=== PATIENT | male | born 1940 | race Caucasian/White ===

== ENCOUNTER 2019-07-11 23:53 | Inpatient (IN) ==
[2019-07-12 01:10] LABS: BASO# 0.01 X1000 (0.0-0.2); BASO% 0.2 % (0.0-0.8); EOS# 0.01 X1000 (0.0-0.7); EOS% 0.2 % (0.0-10.0); HEMATOCRIT 41.4 % (42.0-52.0); HEMOGLOBIN 13.8 g/dL (14.0-18.0); IMM GRAN# 0.34 X1000 (0.0-0.04); IMM GRAN% 5.9 % (0.0-0.5); LYMPH# 0.33 X1000 (1.2-3.4); LYMPH% 5.7 % (20.5-51.1); MCH 29.5 PG (27-31); MCHC 33.3 g/dL (33-37); MCV 88.5 FL (81-99); MONO# 0.68 X1000 (0.11-0.59); MONO% 11.8 % (1.7-9.3); NEUT# 4.41 X1000 (1.4-6.5); NEUT% 76.2 % (42.2-75.2); PLT 117 X1000 (130-400); RBC 4.68 XMIL (4.7-6.1); RDW 15.8 % (11.5-14.5); WBC 5.78 X1000 (4.8-10.8)
--- NOTE | 2019-07-12 01:23 | PROVIDER DOCUMENTATION ---
HPI-General Adult - General Chief Complaint: General Adult Stated Complaint: WEAKNESS Time Seen by Provider: 07/12/19 00:05 Source: patient, family Allergies/Adverse Reactions: Patient Allergies Allergy/AdvReac Type Severity Reaction Status Date / Time No Known Allergies Allergy Verified 07/12/19 00:45 Home Medications: Home Medication List Medication Instructions Recorded Confirmed Last Taken Type Omeprazole [Prilosec] 40 mg PO BID 07/12/15 11/17/18 11/16/18 18:00 History Tamsulosin [Flomax] 0.4 mg PO EVERY OTHER DAY 07/12/15 10/15/18 1 Day Ago Hist ory ~10/15/17 Atorvastatin Calcium [Lipitor] 40 mg PO QHS 10/09/15 11/17/18 11/16/18 18:00 H istory Duloxetine [Cymbalta] 30 mg PO DAILY 10/16/17 11/17/18 11/16/18 18:00 History Clonidine [Catapres] 0.1 mg PO Q4H PRN PRN tablet 10/18/17 11/17/18 11/16/18 18:00 Rx Amlodipine Besylate [Norvasc] 2.5 mg PO DAILY 08/16/18 11/17/18 11/16/18 18:00 History Levetiracetam [Keppra] 1,500 mg PO BID 08/16/18 11/17/18 11/16/18 18:00 History Losartan [Cozaar] 50 mg PO BID 08/16/18 11/17/18 11/16/18 18:00 History Promethazine [Phenergan] 25 mg PO DIRECTED PRN 08/16/18 11/17/18 11/16/18 18:00 History Aspirin 325 mg PO DAILY 10/15/18 11/17/18 11/16/18 18:00 History Tamsulosin [Flomax] 0.4 mg PO DAILY 11/17/18 11/17/18 11/16/18 18:00 History - History of Present Illness -Gen Adult Nature of Presenting Problems: 78 YO M pmh for recent CVA being followed by neurology with residual right sided weakness brought to ED by his for increasing weakness over the past 36 hours with associated falls without LOC or head injury and intermittent abdominal pain with constipation and last BM being 7 days ago. He was given mag citrate by his PCP 2 days ago with no relief of constipation. Associated poor appetite. Pt states he had CVA in March, and was rescanned on Jul 05, 2019 by neurology and stated to have another more recent CVA. 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 hx of CABG 10 years ago. His home BPs have been running 170s/100s. He currently denies any pain or ShOB. Location of Pain/Injury: reports: none Pain Radiation: reports: no radiation Quality of Pain: reports: none Severity: reports: moderate Onset/Duration: reports: 2 days ago Timing: reports: still present Context/Activities at Onset: reports: none Associated Symptoms: reports: constipation, weakness, trouble walking. denies: chest pain, diarrhea, dizziness, fatigue, fever/chills, shortness of breath, syncope, vomiting Recently seen or treated by another doctor?: Yes Review of Systems - Adult - REVIEW OF SYSTEMS - ADULT Constitutional: denies: chills, fever Eyes: reports: no symptoms reported Ears, Nose, Mouth & Throat: reports: no symptoms reported Cardiovascular: denies: chest pain, edema Respiratory: denies: shortness of breath Gastrointestinal: reports: see HPI, abdominal pain, constipation, poor appetite. denies: difficulty swallowing, nausea, vomiting Genitourinary: denies: dysuria, flank pain, frequent UTI's, hematuria Musculoskeletal: reports: no symptoms reported Neurological: reports: see HPI, loss of balance. denies: slurred speech, syncope Psychiatric: reports: no symptoms reported Endocrine: reports: no symptoms reported Hematologic/Lymphatic: reports: no symptoms reported Allergic/Immunologic: reports: no symptoms reported Past History - Adult - PAST MEDICAL HISTORY-ADULT Review of Records: reports: Old Records Reviewed, Nursing Assessment Review, Medications Reviewed Major Childhood Illnesses: reports: denies history Cardiovascular: reports: CAD, HTN, hyperlipidemia Respiratory: reports: denies history Gastrointestinal: reports: other (barretts esophagus) Obstetrical/Gynecological: reports: denies history Genitourinary: reports: cancer (bladder) Musculoskeletal: reports: denies history Neurological: reports: CVA, Seizures/Epilepsy, TIA Endocrine/Immune: reports: denies history Other Conditions: reports: denies history - PRIOR SURGERIES/PROCEDURES Surgical/Procedure History: reports: CABG, hernia repair, other (cataract, bladder) - IMMUNIZATION STATUS Childhood Immunizations: See Nurse Assessment Flu Vaccine: See Nurse Assessment - FAMILY HISTORY Family History: reviewed, not pertinent - SOCIAL HISTORY Smoking: denies Substance Use: denies Living Situation: family Physical Exam-General - PHYSICAL EXAM-ADULT Initial Vital Signs Reviewed: Yes (repeat BP 170s/100s) - CONSTITUTIONAL General Appearance: lethargic, slow to respond - EYES Eyes: pale conjunctivae - HEAD, EARS, NOSE, MOUTH & THROAT HENMT: normocephalic/atraumatic. negative: moist mucous membranes - RESPIRATORY Respiratory: lungs clear, normal breath sounds, no pleuratic chest pain, no respiratory distress, no accessory muscle use - CARDIOVASCULAR Cardiovascular: no edema, systolic murmur, other (pacer in left chest wall anteriorly) - GASTROINTESTINAL (ABDOMEN) Abdominal Exam: normal bowel sounds, non tender, soft. negative: distended - MUSCULOSKELETAL Extremity: no pedal edema, no calf tenderness - SKIN Integumentary: warm/dry - NEUROLOGIC Neurologic: motor weakness. negative: aphasia, facial droop - PSYCHIATRIC Psych/Mental Status: normal mood/affect Progress - PLAN OF CARE/RESULTS Progress/Plan/Lab Results: Vital Signs - 8 hr 07/12/19 00:17 Temperature 97.7 F Pulse Rate 80 Respiratory Rate 18 Blood Pressure 204/122 O2 Sat by Pulse Oximetry 95 Laboratory Results - last 24 hr 07/12/19 00:57 WBC 5.78 RBC 4.68 L Hgb 13.8 L Hct 41.4 L MCV 88.5 MCH 29.5 MCHC 33.3 RDW Std Deviation 15.8 H Plt Count 117 L MPV 11.0 H Immature Gran % (Auto) 5.9 H Neut % (Auto) 76.2 H Lymph % (Auto) 5.7 L [place] % (Auto) 11.8 H Eos % (Auto) 0.2 Baso % (Auto) 0.2 Immature Gran # (Auto) 0.34 H Neut # (Auto) 4.41 Lymph # (Auto) 0.33 L [place] # (Auto) 0.68 H Eos # (Auto) 0.01 Baso # (Auto) 0.01 Orders Category Date Time Status Nursing- Obtain EKG ONCE Care 07/12/19 00:42 Active CHEST-1 VIEW [RAD] Stat Exams 07/12/19 00:[address] ABDOMEN/PELVIS W/O CONTRAST [CT] Stat Exams 07/12/19 00:43 Ordered CBC WITH ELECTRONIC DIFF [HEME] Stat Lab 07/12/19 00:57 Completed COMPREHENSIVE METABOLIC PANEL [CHEM] Stat Lab 07/12/19 00:57 Received LIPASE [CHEM] Stat Lab 07/12/19 00:57 Received PRO B-NATRIURETIC PEPTIDE Stat Lab 07/12/19 00:57 Received TROPONIN T Stat Lab 07/12/19 00:57 Received TSH Stat Lab 07/12/19 00:57 Received URINALYSIS W/POSS RFLX CULT [URINALYSIS] Stat Lab 07/12/19 00:43 Uncollected 78 YO M pmh for CVA with residual weakness, increasing weakness and de compensation with 2 falls in the past [address] showing constipation (having no BM in 7 days) and elevated proBNP and hyperglycemia. Will admit for decompensation and generalized weakness. Result Diagrams: 07/12/19 00:57 07/12/19 00:57 - REASSESSMENT Reassessment #1 Time Reassessed: 02:36 Status: unchanged (pt with labs showing hyperglycemia. Elevated pro BNP. CT showing constipation and no obstruction. Hiatal hernia, renal cysts, prostate enlargement, and chronic aspiration. Will try for dulcolax suppository.) - EKG 1 Time of EKG reading by physician:: 01:40 EKG Read and Signed by:: Devin Lee EKG Interpretation (*Must complete 3 of following elements*): Abnormal Rate: 73 Rhythm: NSR [place]: left QRS: normal [place] Interval: normal Prior EKG Comparison: unchanged from prior (unchanged from 11/17/2018.) - CONSULTS/PCP/HOSPITALIST Notification #1 *Consult/PCP/Hospitalist*: Dr. Valiente Time Discussed: 03:08 (accepts admission) Consult Disposition: Will see in ED Departure - Departure Date of Disposition Decision: 07/12/19 Time of Disposition Decision: 02:48 DIAGNOSIS: Hyperglycemia, Weakness, Recurrent falls, Constipation, Abdominal pain, Elevated brain natriuretic peptide (BNP) level, Hypertension Disposition: ADMITTED INPATIENT 09 Certified Medical Emergency: Emergent Condition: Stable Referrals and Follow-Ups: Ludwig Daley MD [Primary Care Provider] - - Critical Care Note This patient required my direct & personal management of CC.: No Attestation - Physician/ ALAINA Attestation The physician spent face to face time with patient:: Yes Advanced Practice Provider documentation review:: Supervising physician onsite and consulted in the evaluation and care of this patient. The physician did have a face to face encounter with the patient.
[2019-07-12 01:40] LABS: URINE SOURCE CLEAN CATCH
[2019-07-12 01:55] LABS: AGAP 11; ALB/GLOB RATIO 1.7; ALBUMIN 3.2 g/dL (3.5-5.0); ALKALINE PHOSPHATASE 48 U/L (32-122); BUN 32 mg/dL (8-22); CALCIUM 9.8 mg/dL (8.8-10.2); CHLORIDE 98 mmol/L (98-107); COSMO 297; CREATININE 0.9 mg/dL (0.7-1.2); ESTIMATED GFR > 60; GLUCOSE 317 mg/dL (70-104); GOT 20 U/L (10-34); GPT 29 U/L (10-44); LIPASE 34 U/L (13-60); POTASSIUM 4.4 mmol/L (3.5-5.1); SODIUM 139 mmol/L (136-145); TCO2 30 mmol/L (25-35); TOTAL BILIRUBIN 0.68 mg/dL (0.20-1.00); TOTAL PROTEIN 5.1 g/dL (6.3-8.3)
[2019-07-12 02:20] LABS: BILIRUBIN URINE NEGATIVE (NEGATIVE); BLOOD URINE NEGATIVE (NEGATIVE); COLOR YELLOW; GLUCOSE URINE >1000 mg/dL (NEGATIVE); KETONE URINE NEGATIVE (NEGATIVE); LEUKOCYTES URINE MODERATE (NEGATIVE); NITRITE URINE NEGATIVE (NEGATIVE); PH URINE 6.5; PROTEIN URINE 70 mg/dL (NEGATIVE); SP GRAVITY URINE 1.022; TURBIDITY URINE HAZY (CLEAR); UR EPITHELIAL CELLS <10 /HPF (<10); URINE BACTERIA 3+ /HPF; URINE RBC <10 /HPF (<10); URINE WBC TNTC /HPF (<10); UROBILINOGEN URINE 2 mg/dL (NORMAL)
[2019-07-12] MEDS ORDERED: DULCOLAX PR ONE (02:46)
[2019-07-12] MEDS ORDERED: ASPIRIN PO ONE ×2 (03:27→09:00)
[2019-07-12] MEDS ORDERED: NORVASC PO ONE (03:28)
[2019-07-12] MEDS ORDERED: PERICOLACE PO ONE (03:29)
[2019-07-12] MEDS ORDERED: LACTULOSE PO ONE (03:29)
[2019-07-12] MEDS ORDERED: ROCEPHIN 1 GM in NS 50 ML IV ONE (03:30)
--- NOTE | 2019-07-12 04:43 | HISTORY AND PHYSICAL ---
PRIMARY CARE PHYSICIAN: Dr. Ludwig Daley. ADDENDUM: The patient is a 78-year-old man with history of cerebral vascular vasculitis, type of vasculitis, i.e. large, medium, small vessel vasculitis is yet to be determined, per the family. He has been on Rituxan and prednisone for several months. Just last week, his prednisone dose was doubled from 30 mg to 60 mg. After being unable to tolerate the initial 60 mg dose several months ago. Ever since the dose of the prednisone has been doubled, the patient has noted that his weakness has gotten severely worse. He denies any cardiorespiratory complaints, but has a hard time standing from a sitting position, and using his upper body strength. He denies any focal sensorimotor, neurological complaints. His family denies any speech problems, facial asymmetry. PHYSICAL EXAMINATION: VITAL SIGNS: His blood pressure was noticeably elevated at 194/125, heart rate is 80, respiratory rate is 18, temperature is 97.7 degrees, and he is 95% on room air. HEENT: The patient's oropharynx has moderate xerostomia. NEUROLOGIC: His cranial nerve exam is intact. His power is 4/5 in all extremities. CARDIOVASCULAR: He has a 2-3/6 systolic ejection murmur in the left lateral border, rhythm is regular. GASTROINTESTINAL: Abdomen is slightly protuberant with increased bowel sounds. No tenderness. LABORATORY WORK: Notable for thrombocytopenia of 117, hemoglobin and hematocrit 13 and 41, platelets 5000 with a slight left shift. His blood sugar was 317. BUN 32, creatinine 0.9. Urinalysis shows 3+ bacteria, too numerous to count WBCs, and a glucose of greater than 1000. My suspicion is the patient may have a subcortical subclinical stroke and will benefit from a stroke workup, MRI of the brain stroke protocol and MRA of the head to evaluate for intracranial vascular disease, and an MRA of the neck to assess for carotid stenosis, echocardiogram will also be ordered. The patient probably does have a legitimate urinary tract infection, and will start him on Rocephin. We will also start him on baby aspirin. DVT prophylaxis is started. He will need to initiate a bowel movement because he has been chronically constipated, presumably from the high-dose steroids. Patient also has evidence of BPH, and this lends further credence to my suspicion of diagnosis of a UTI. Statin therapy also needs to be addressed, and medication reconciliation needs to be addressed and modified accordingly. cc: Rena Valiente MD
[2019-07-12 05:46] LABS: INR 1.14; PROTIME 14.8 Seconds (11.0-16.0)
[2019-07-12 05:47] LABS: PTT 29.5 Seconds (22.3-41.8)
[2019-07-12 06:28] LABS: HEMOGLOBIN A1C 7.9 % (4.8-6.0)
[2019-07-12] MEDS ORDERED: ATIVAN IV ONE ×2 (06:51→07:12)
--- NOTE | 2019-07-12 07:02 | Diag Imaging Result Doc PS360 ---
EXAM: CHEST-1 VIEW 07/12/2019 HISTORY: weakness TECHNIQUE: AP portable at 0122 COMMENT: There is platelike atelectasis in the left base which was not present on 10/15/2018. The inspiration is much less optimal. IMPRESSION: Poor inspiration. Left lower lobe atelectasis. Electronically signed by Jose Miguel Majano 07/12/2019 7:00 AM
[2019-07-12] MEDS ORDERED: ZOFRAN IV PRN (07:29)
--- NOTE | 2019-07-12 07:53 | Diag Imaging Result Doc PS360 ---
EXAM: CT HEAD W/O CONTRAST 07/12/2019 HISTORY: weakness,Hx CVA Cerebral Vascular Vasculitis TECHNIQUE: This exam was performed using automated exposure control, adjustment of mA or kV according to patient size, and/or use of iterative reconstruction technique. COMMENT: There are calcifications in the left vertebral and both internal carotid arteries. There are some patchy lucencies in the centrum semiovale ovale region and there is some cortical encephalomalacia in the right parietal convexity. There is a lacune present in the anterior superior basal ganglia region on the left. No evidence of bleed, mass effect, or abnormal extra-axial fluid collection is present. Compared to the previous examination of 11/17/2018, the lacunar infarction on the left was not as well-defined. Otherwise are has been no significant change. There is some mucosal thickening in the right maxillary sinus. The calvarium is intact. IMPRESSION: Progression of chronic ischemic changes with regard to the left basal ganglia lacune since the previous study. In view of the chronic changes, further evaluation with MRI may be desirable. Electronically signed by Jose Miguel Majano 07/12/2019 7:51 AM
--- NOTE | 2019-07-12 08:55 | EKG Report ---
Test Performed on : 07/12/2019 01:35:31 AM Test Reason : ED. NO EKG ORDER FOR MUSE Blood Pressure : / mmHG Vent. Rate : 073 BPM Atrial Rate : 073 BPM P-R Int : 168 ms QRS Dur : 122 ms QT Int : 408 ms P-R-T Axes : 047 -31 150 degrees QTc Int : 449 ms Normal sinus rhythm. Left axis deviation Cannot rule out Anterior infarct , age undetermined ST & T wave abnormality, consider inferolateral ischemia Abnormal ECG When compared with ECG of 17-NOV-2018 04:29, ST now depressed in Lateral leads T wave inversion more evident in Lateral leads Unconfirmed Result
--- NOTE | 2019-07-12 08:57 | Diag Imaging Result Doc PS360 ---
EXAM: CT ANGIOGRAM HEAD/NECK INDICATION: weakness,Hx CVA Cerebral Vascular Vasculitis TECHNIQUE: This exam was performed using automated exposure control, adjustment of mA or kV according to patient size, and/or use of iterative reconstruction technique. Thin section axial images and 3-D MIPS were obtained. COMPARISON: MRA brain dated 07/24/2015. No prior CTA head is available for comparison. FINDINGS: HEAD: The contrast bolus is somewhat limited. There is extensive atherosclerotic calcification involving the carotid siphons bilaterally with mild to moderate luminal narrowing. There is poor opacification of the distal loan workout officer bilaterally. This appears to be technical due to a limited contrast bolus. There is no evidence of flow-limiting stenosis, vascular malformation, or cerebral aneurysm involving the arteries comprising the [place], otherwise, including the anterior, middle, and posterior cerebral arteries. The basilar artery is unremarkable. The left vertebral artery is dominant. There is mild atherosclerotic calcification in the distal vertebral artery on the left. There is no evidence of flow-limiting stenosis here. NECK: The contrast bolus is somewhat limited. There is mild atherosclerotic calcification involving the left CCA and trace atherosclerotic calcification involving the right CCA. There is moderate atherosclerotic calcification involving the carotid bulbs bilaterally. There is approximately 30-40% luminal narrowing at the distal carotid bulbs bilaterally. The remainder of the cervical ICAs are widely patent. The left vertebral artery is dominant. The right vertebral artery is much smaller, a common variant. There is mild atherosclerotic calcification involving the cervical segments of the left vertebral artery with no evidence of flow-limiting stenosis. IMPRESSION: 1.Somewhat limited by poor contrast bolus. 2.Atherosclerotic calcification involving the carotid siphons bilaterally with mild to moderate luminal narrowing. 3.Atherosclerotic calcification at the carotid bulbs bilaterally with about 30-40% luminal narrowing. Electronically signed by Popeye Jean Baptiste 07/12/2019 8:54 AM
[2019-07-12] MEDS ORDERED: PREDNISONE PO SCH (09:00)
--- NOTE | 2019-07-12 09:11 | Diag Imaging Result Doc PS360 ---
EXAM: CT ABDOMEN/PELVIS W/O CONTRAST INDICATION: abdominal pain/obstruction TECHNIQUE: This exam was performed using automated exposure control, adjustment of mA or kV according to patient size, and/or use of iterative reconstruction technique. COMPARISON: None. FINDINGS: There is mild subsegmental atelectasis at the lung bases. There has been a prior cholecystectomy. There is questionable minimal hepatic steatosis. The spleen, pancreas, and adrenal glands are essentially unremarkable. There are several low dense cortical renal lesions that very likely represent cysts. Some likely containing blood products or proteinaceous debris indicating mild complexity. Further evaluation is limited with no IV contrast. There is no hydronephrosis. The kidneys are essentially unremarkable, otherwise. The prostate is mildly enlarged. The urinary bladder is partially distended. It is essentially unremarkable, otherwise. There is mild uncomplicated diverticulosis coli. There is a large amount of stool in the transverse colon and there is impacted stool in the rectum. There is no evidence of bowel obstruction. There is a small hiatal hernia. The remainder of the GI tract is grossly unremarkable as imaged. No focal inflammatory changes, free abdominal gas, or free fluid is identified. There is advanced spondylosis throughout the spine. There is no evidence of acute osseous abnormality. IMPRESSION: 1.Constipation with a rectal fecal impaction as described. 2.Other incidental/nonacute findings detailed above. Electronically signed by Popeye Jean Baptiste 07/12/2019 9:09 AM
[2019-07-12] MEDS ORDERED: ATIVAN IV PRN (09:37)
[2019-07-12] MEDS: HUMULIN R SUBQ SCH ×4 (10:32→21:07)
[2019-07-12] MEDS: CYMBALTA PO SCH ×2 (10:36→21:01)
[2019-07-12 14:05] LABS: URINE SOURCE CATH
[2019-07-12 14:07] LABS: BILIRUBIN URINE NEGATIVE (NEGATIVE); BLOOD URINE TRACE (NEGATIVE); COLOR YELLOW; GLUCOSE URINE 500 mg/dL (NEGATIVE); KETONE URINE NEGATIVE (NEGATIVE); LEUKOCYTES URINE LARGE (NEGATIVE); NITRITE URINE NEGATIVE (NEGATIVE); PH URINE 6.5; PROTEIN URINE 70 mg/dL (NEGATIVE); SP GRAVITY URINE 1.035; TURBIDITY URINE HAZY (CLEAR); UROBILINOGEN URINE 2 mg/dL (NORMAL)
[2019-07-12 14:08] LABS: UR EPITHELIAL CELLS <10 /HPF (<10); URINE BACTERIA 2+ /HPF; URINE RBC <10 /HPF (<10); URINE WBC TNTC /HPF (<10)
[2019-07-12] MEDS: PRILOSEC PO SCH ×2 (18:15→19:39)
[2019-07-12] MEDS: CELLCEPT PO SCH ×2 (18:18→21:01)
[2019-07-12] MEDS: PREDNISONE PO SCH ×2 (18:18→21:05)
[2019-07-12] MEDS: MIRALAX PO SCH ×2 (18:19→21:01)
[2019-07-12] MEDS: FLOMAX PO SCH (18:19)
[2019-07-12] MEDS: LANOXIN PO SCH (18:19)
[2019-07-12] MEDS: SENOKOT PO SCH ×2 (18:20→21:05)
[2019-07-12] MEDS ORDERED: ZYPREXA PO SCH (21:00)
[2019-07-12] MEDS: DESYREL PO SCH (21:01)
[2019-07-12] MEDS: LIPITOR PO SCH (21:01)
[2019-07-12] MEDS: ZYPREXA PO SCH (21:05)
[2019-07-12] MEDS ORDERED: NS 1,000 ML IV SCH (21:15)
--- NOTE | 2019-07-12 21:17 | CONSULTATION ---
DATE OF CONSULTATION: 07/12/2019 REASON FOR CONSULTATION: Weakness, possible stroke, history of HOT STRIP MILL INSPECTOR vasculitis. HISTORY: This is a 78-year-old male patient who was being treated for cerebral vasculitis by Dr. Yates at [facility]. He is on rituximab, prednisone, and mycophenolate was recently added. History is from the attendant family. About 2 years ago, the patient began to have off-and-on symptoms for which he was being evaluated. He would have periods of a rather sudden onset of speech difficulty, possible language difficulty, and/or sudden onset of inability to see inferiorly. These events would last approximately 10 minutes before complete resolution. It was ultimately thought he was having TIAs. He did have an extensive cardiac workup as well. He had a pacemaker implanted, and a Watchman device as well. He does have atrial fibrillation. I believe in January of this year, he was seen at the [facility] to see if these events were potentially seizures. He had EEG monitoring for some time, which did not show evidence of seizures. Family reports that he had a relatively good day during the time that he was on monitoring and did not definitely have any of his events. In January the patient was ultimately seen and admitted at [facility]. It sounds as though he had a lumbar puncture and cerebral angiogram, and a diagnosis of HOT STRIP MILL INSPECTOR vasculitis was made. He was started on Rituxan in the hospital as well as prednisone. He did not tolerate the prednisone initially. Family reports his symptoms improved for about 1 week, but he subsequently became ill and septic, and has since had a continuous downward trend. In March, he had sudden onset of inability to speak as well as right- sided weakness and facial droop. He was diagnosed with a stroke. In the last couple of weeks, he has had more prominent decline. He had followup at [facility] July 05 with repeat imaging. Decision was made to increase prednisone from 30 to 60mg. Subsequently his head CT showed concern for a possible stroke, though I am not certain that was definitive. His mobility and general function has continued to decline. He has had generalized weakness. Family decided to bring him to the emergency room due to constipation and general weakness. He is being treated for UTI and prednisone was reduced back to 30mg. PAST MEDICAL HISTORY: Being treated for HOT STRIP MILL INSPECTOR vasculitis. He follows with Dr. Yates at [facility]. Hypertension, coronary artery disease, atrial fibrillation status post ablation in 2017, Watchman device. FAMILY HISTORY: Positive for hypertension. SOCIAL HISTORY: He is . Lives in the area. He does not smoke. ALLERGIES: No known drug allergies. MEDICATIONS: Current, reviewed in the chart. He is currently on prednisone 30 mg daily, aspirin 325 mg daily, Lipitor 40 mg daily. He received a dose of lorazepam this morning. He also takes CellCept and Rituxan. REVIEW OF SYSTEMS: Difficult to obtain due to patient factors. PHYSICAL EXAMINATION: Vital Signs: T max 100. Blood pressure 180s to 190s systolic over 90s to one-teens diastolic, pulse 90s, respirations 18, 96% on room air. General: Mr. Arizmendi is supine in bed with eyes closed. He lifts eyebrows, mumbles, and essentially opens his eyes to voice. He appears groggy and drifts back to sleep but easily wakes. He does not answer orientation questions. He mumbles incoherently. He follows some commands but not others. He shows thumbs-up on both hands. Pupils are equal, round, and reactive. Gaze is conjugate. There is horizontal eye movement with passive head turning. There is purposeful and spontaneous horizontal eye movement as well. Blinks to threat. He is not attentive enough for visual field testing. There is subtle facial asymmetry with some flattening of the right nasolabial fold. No meningismus. Virtual Assistant are good bilaterally and symmetric. Biceps intact and symmetric. He did not otherwise participate well with strength testing, though I did see him raise both lower extremities. He responds to stimulus in all extremities. A little bit reduced in the right lower extremity compared to the others. Absent ankle jerks ,1+ biceps bilaterally. No clonus. Plantar response is downgoing. I could not test gait or coordination. DIAGNOSTICS: CT noncontrast was compared to a study from November of this year. Progression of chronic ischemic changes with regard to left basal ganglia lacune since the previous study. Head and neck CT is somewhat limited by poor contrast bolus. There is atherosclerotic calcification within the carotid siphons bilaterally with [id number] luminal narrowing, atherosclerotic calcification at the carotid bulbs bilaterally with about 30% to 40% luminal narrowing. Normal white count. BUN 32, creatinine 0.9, normal sodium. A1c of 7.9. AST/ALT normal. CRP is 64. Urinalysis suspicious for UTI with culture pending. ASSESSMENT AND PLAN: Elderly 78 year old gentleman with 1. Recurrent language and or inferior visual field deficits with initial concern for TIAs, seizures, or other. 2. Continued gradual neurocognitive and functional decline with increased severity of decline over the last week or so. Potential etiologies for more recent decline include UTI, recent medication changes, progression of vasculitis. May need to consider other infectious processes including HOT STRIP MILL INSPECTOR, especially since he is on immunosuppressive medications, if mental status does not improve. I also wonder what medications, if any, can be weaned to off or discontinued. Agree with treating UTI and reducing prednisone. If he does not improve, we may consider EEG, repeat imaging. further infectious workup. 3. He is being treated for cerebral vasculitis at [facility] and is on rituximab, mycophenolate and prednisone. No current findings on CTA. No history of systemic vasculitis. We do not have records available. 4. Immunosuppression. 5. History of adverse effects with prednisone 6. UTI, on abx for treatment 7. Multiple stroke risk factors Thank you for the consultation. cc: MD Ludwig Peraza MD MTDD
--- NOTE | 2019-07-12 22:14 | HISTORY AND PHYSICAL ---
PRIMARY CARE PHYSICIAN: Dr. Ludwig Daley. CHIEF COMPLAINT: Profound weakness, alteration of mental status. HISTORY OF PRESENT ILLNESS: This is a 78-year-old white male with a very complicated past medical history who presents for evaluation of above-mentioned symptoms. Pertinent history of present illness began over the course of the last 2 to 3 years. Over that time period, multiple neurologic and cardiovascular evaluations have been pursued secondary to intermittent episodes of alteration of mental status. Atrial fibrillation has been addressed. The diagnoses of possible transient ischemic attacks and possible seizure activities were made, but ultimately challenged. 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 Patient has subsequently been treated with prednisone and rituximab, and recently had mycophenolate added. Unfortunately, the patient's overall clinical condition continues to be compromised. He continues to have episodes of mental status alteration as well as profound weakness. Approximately 1 week ago he was seen at [facility]. Prednisone therapy was doubled from 30 mg to 60 mg. Since that time, the patient has developed progressive weakness. He is unable to ambulate without assistance. Overnight, patient's condition progressed. He continues to have profound weakness as well as mental status changes. Concern was raised in regards to obstipation. The patient was brought to the emergency department. Full evaluation was pursued. Laboratory data returned positive for a urinary tract infection. CT scan of the head revealed progression of chronic ischemic changes with regard to the left basal ganglia lacune since the previous study of . CT scan of the abdomen and pelvis suggested constipation with a rectal fecal impaction. The patient was started on Rocephin therapy for his urinary tract infection. Early this morning,the patient became agitated and belligerent. The patient required Ativan to maintain adequate control. Upon my arrival this morning, the patient was somnolent. A long discussion was held with patient's family. Because of urinary infrequency, a bladder scan was performed revealing 900 mL in his bladder. A catheter has subsequently has been placed. The patient will be admitted to the hospital for full evaluation and management of alteration of mental status, urinary tract infection, and ACCOUNTING OFFICER vasculitis. Of note, patient's family denies any evidence of fevers, chills, nausea, vomiting, dysuria, hematuria, or pyuria recently. PAST MEDICAL HISTORY: 1. Abnormal electrocardiogram with nonspecific QRS widening, T-wave inversion in the lateral leads, and atrial fibrillation. 2. Abnormal skin examination with multiple actinic keratoses, seborrheic keratoses and a history of multiple basal cell carcinomas. 3. Sanchez esophagus. 4. Benign prostatic hypertrophy. 5. Constipation. 6. Diastolic dysfunction. 7. Metabolic syndrome. 8. Reflux disease. 9. Hypertension. 10. Family history of stroke. 11. 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 12. Chronic hoarseness. 13. Hyperlipidemia. 14. Impaired fasting glucose. 15. Iron deficiency anemia. 16. Ischemic heart disease status post coronary artery bypass grafting in 2011. 17. Migraine headaches. 18. Mitral regurgitation. 19. Memory impairment. 20. Paroxysmal atrial fibrillation status post ablation in 2017 and subsequent Watchman intervention. 21. Pacemaker implantation in 2017. 22. Possible history of transient ischemic attacks. 23. Umbilical hernia. 24. 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 25. ACCOUNTING OFFICER vasculitis. CURRENT MEDICATIONS: 1. Aspirin 325 mg daily. 2. Amlodipine 2.5 mg daily. 3. Digoxin 125 mcg daily. 4. Prednisone 30 mg in morning and 30 mg in the evening. 5. Duloxetine 30 mg twice daily. 6. Mycophenolate 500 mg twice daily. 7. Omeprazole 40 mg twice daily. 8. Tamsulosin 0.4 mg daily. 9. Lipitor 40 mg at bedtime. 10. Trazodone 50 mg at bedtime. 11. Olanzapine 15 mg at bedtime. ALLERGIES: The patient is known to be allergic to Actos, Crestor, niacin and Zocor. SOCIAL HISTORY: Patient denies tobacco, alcohol or illicit drug use. 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 He enjoys golf. He exercises intermittently. FAMILY HISTORY: Patient's father passed at age 61 secondary to complications of a cerebral hemorrhage. Patient's mother passed at age 84 secondary to "old age." She had a history of hypertension. REVIEW OF SYSTEMS: A 12-point review of systems was performed. Pertinent positives and negatives are noted in the history of present illness. PHYSICAL EXAMINATION: VITAL SIGNS: Temperature 98.9 degrees, heart rate 91, respirations 17 blood pressure is 160/95. GENERAL: Chronically ill-appearing, in no acute distress. HEENT: Normocephalic, atraumatic. Pupils equal, round, react to light. Extraocular muscles intact. Sclerae anicteric. [place] conjunctivae. Oral and nasopharynx clear without exudate. NECK: Supple. No lymphadenopathy. No thyromegaly. No bruits auscultated. CARDIOVASCULAR: Regular rate and rhythm. No significant murmurs, rubs, or gallops. PULMONARY: Clear to auscultation bilaterally. ABDOMEN: Soft, nontender, nondistended. Positive bowel sounds. EXTREMITIES: Moves all extremities well. No significant clubbing, cyanosis, or edema. NEUROLOGIC: Cranial nerves 2-12 grossly intact. Motor and sensory grossly intact. PSYCHOLOGIC EXAMINATION: Appropriate. LABORATORY DATA: White blood cell count 5.78, hemoglobin 13.8, hematocrit 41.4, platelet count 117,000. Sedimentation rate 15. PT 14.8, INR 1.14, PTT 29.5. Sodium 139, potassium 4.4, chloride 98, bicarb 30, BUN 32, creatinine 0.9 glucose 317. Calcium at 9.8, total bilirubin 0.68, total protein 5.1, albumin 3.2, alkaline phosphatase 48, AST 20, ALT 29. TSH 0.35. Hemoglobin A1c 7.9. Total cholesterol 131, LDL 69, HDL 35, triglycerides 327, CRP 64.98. ASSESSMENT AND PLAN: 1. A 78-year-old, white male with a very complicated past medical history presents for evaluation of alteration of mental status. Laboratory data is significant for a urinary tract infection. I am, however, very concerned this also represents progression of his cerebral vascular disease. Patient will be admitted to the hospital for full evaluation and management as below. 2. Alteration of mental status-as above. Differential diagnosis is quite broad. The patient certainly has an acute illness in the form of a urinary tract infection. This will be treated as below. 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 We will address each of these. We will encourage activity as tolerated. Should patient not develop progressive symptoms, we will consider further alternatives and management. 3. Urinary tract infection. Patient was started on Rocephin upon admission. We will continue this. We will follow blood and urine cultures. 4. Urinary retention. The patient was found to have significant urinary retention this morning. A Quigley catheter was placed. We will consult urology for further management. 5. Central nervous system vasculitis. This is quite concerning. The patient is on multiple medications including rituximab, mycophenolate, and prednisone. The patient's weakness increased after increasing the prednisone. We will decrease prednisone back to 30 mg total daily. We will continue mycophenolate and rituximab per [facility]'s recommendations. As the patient's overall condition continues to progress, I discussed in detail with family his current prognosis. If patient does not show improvement over the course of the next several weeks to months, we will consider whether a more palliative approach is most appropriate. 6. Profound weakness. This is likely secondary to a combination of medication associated and his underlying conditions. We will decrease prednisone as noted. We will initiate physical therapy. 7. Constipation. The patient was treated while in the emergency department. The patient has achieved improvement over the course of the first 12 hours of hospitalization. 8. Diabetes. Blood sugars have increased since being on steroids. We will cover patient with sliding-scale insulin for now. 9. Hypertension. Patient has a longstanding history of labile hypertension. Blood pressure today has remained elevated. He is unable to tolerate p.o. secondary to his somnolent state. Historically, the patient has developed profound hypotension with small doses of antihypertensive intervention. As his blood pressure is not alarming at the present time, we will follow for now. We will plan to resume his oral medications once able. 10. Hyperlipidemia/hypertriglyceridemia/atrial fibrillation. We will continue patient on his home regimen. 11. Fluid/electrolytes/nutrition. We will monitor electrolytes. Normal saline, KVO. Diabetic diet. 12. Prophylaxis. Patient will be placed on subcutaneous Lovenox. cc: Ludwig Daley MD
[2019-07-13] MEDS ORDERED: CARDIZEM IV ONE (02:16)
[2019-07-13] MEDS ORDERED: LANOXIN IV ONE (02:17)
[2019-07-13] MEDS: ROCEPHIN 1 GM in NS 50 ML IV SCH (03:24)
--- NOTE | 2019-07-13 04:18 | HISTORY AND PHYSICAL ---
PRIMARY CARE PROVIDER: Dr. Ludwig Daley. DATE AND TIME: 07/12/2019 at 0600. CHIEF COMPLAINT: Complaining of worsening weakness, some worsening in confusion, as well as his reports that he has been having to get around in a wheelchair, that when he does walk he robinson over and has a shuffling gait. He also has some ataxia noted as well. HISTORY OF PRESENT ILLNESS: The patient does have a history of a previous stroke. He also has cerebral vascular vasculitis and is taking CellCept, Rituxan, and prednisone. They have just recently doubled his prednisone dose from 30 mg daily to 60 mg daily in the last week. They state that since this time, the patient's weakness has progressively gotten worse. Upon my examination, the patient's confusion does seem to be transient at times. He is alert and oriented to person, place, and time. He can identify his at bedside. Then, other times he is only alert and oriented to person. He does have periods where he becomes acutely confused and agitated. Like I said, this is transient, I witnessed this in the ER to where at one point, he was fairly oriented and then a few minutes later was confused and was agitated. The patient really does not report any complaints. He does not report headache or dizziness. His reported that he has stated that his vision has been blurry. He denies any chest pain or shortness of breath. Though, his states that a night or 2 ago that he was lying in bed and looked like he was tachypneic and short of breath. She also states that he appears to be having shortness of breath with exertion as well. He has reported some lower abdominal pain, though has not had a bowel movement in 1 week. There is no reported nausea or vomiting. Though the patient has not reported dysuria, his states he has been having urinary frequency and his urine is dark in color. There is no reported new swelling or pain in extremities. Though, given the patient's symptoms and his history, there is concern that he may have had a possible stroke. Unfortunately, an MRI would be preferred, though the patient does have a pacemaker and is unable to have this test performed. We will order a CT of the head without contrast as well as a CTA of the head and neck. The patient does have a urinary tract infection, We will place him on antibiotic with Rocephin. A urine culture is pending. He will be placed on the medical floor with telemetry for inpatient admission. REVIEW OF SYSTEMS: A 14-point review of systems was conducted with the patient and all were negative, except for pertinent positives mentioned above in HPI. PAST MEDICAL HISTORY: 1. History of TIAs and CVAs with most recent one being in March 2019. 2. History of cerebral vascular vasculitis followed by physician at [facility]. 3. Hypertension. 4. Gastroesophageal reflux disease. 5. History of coronary artery disease status post 2 stents and coronary artery bypass graft. 6. History of paroxysmal atrial fibrillation, status post having a Watchman left atrial closure device placed. 7. Pacemaker placement. PAST SURGICAL HISTORY: 1. Status post coronary artery bypass graft. 2. Pacemaker placement. 3. Watchman left atrial closure device placement. 4. Tumor removal secondary to bladder cancer. SOCIAL HISTORY: The patient does live at home with his , she does care for him. He does require assistance with a wheelchair. His states that he does not ambulate much at this time due to his worsened weakness. There is no known history of tobacco, alcohol, or illicit drug use. FAMILY HISTORY: Positive for hypertension. ALLERGIES: Patient has no known allergies. HOME MEDICATIONS: 1. Norvasc 2.5 mg p.o. daily. 2. Aspirin 325 mg p.o. daily. 3. Lipitor 40 mg p.o. at bedtime. 4. Digoxin 125 mcg p.o. daily. 5. Cymbalta 30 mg p.o. b.i.d. 6. CellCept 500 mg p.o. b.i.d. 7. Olanzapine 15 mg p.o. at bedtime. 8. Prilosec 40 mg p.o. b.i.d. 9. Prednisone 30 mg p.o. b.i.d. 10. Flomax 0.2 mg p.o. daily. 11. Trazodone 50 mg p.o. at bedtime. DIAGNOSTIC DATA/LABORATORY RESULTS: 1. White blood cell count is 5780, hemoglobin 13.8, hematocrit 41.4, platelet count is 117,000. PT 14.8, INR 1.14, PTT is 29.5. Sodium 139, potassium 4.4, chloride 98, serum bicarb is 30, BUN 32, creatinine 0.9 with a GFR greater than 60. Glucose is 317. Hemoglobin A1c is 7.9. Calcium 9.8, magnesium 2.2. Liver function tests within normal limits. Troponin is less than 0.01. Urinalysis was obtained via clean catch, was positive for protein, greater than a 1000 glucose, moderate leukocytes, and too numerous to count white blood cells, and 2+ bacteria. Digoxin level was 0.9. 2. EKG showed normal sinus rhythm, a left axis deviation at a rate of 73 with a QTc of 449. 3. Chest x-ray showed poor inspiration and left lower lobe atelectasis, per Radiology. 4. CT of the abdomen and pelvis without contrast showed constipation with a rectal fecal impaction as described. There was noted to be a large amount of stool in the transverse colon and there is impacted stool in the rectum. There is no evidence of bowel obstruction. Pending diagnostic studies at this time are a CT head and CTA of head and neck. PHYSICAL EXAMINATION: VITAL SIGNS: Temperature 99.1 degrees, heart rate 95, respirations 18, blood pressure is 186/93, oxygen saturation is 94% on room air. GENERAL: Mr. Arizmendi is a 78-year-old male who is resting in the ER stretcher. He is awake and alert, at times he is alert oriented to person, place, and time, and can identify his at bedside, though he does have periods of transient confusion where he does become slightly agitated as well. HEENT: Head is atraumatic, normocephalic. Pupils are 3 mm bilaterally and brisk. Oral mucosa is moist. Oropharynx clear. NECK: Supple. Trachea midline. CARDIOVASCULAR: The patient has S1, S2 present. He has a systolic murmur noted. He has a regular rate and rhythm. PULMONARY: Patient has equal chest rise and fall. The patient has symmetrical chest expansion bilaterally. Lung sounds are clear to auscultation in bilateral full ayala. ABDOMEN: Soft, does not appear to be distended. The patient was not tender upon palpation, though as previously mentioned, he has been reporting some lower abdominal pain. Bowel sounds are present in all 4 quadrants, though were slightly hyperactive. EXTREMITIES: No cyanosis or edema noted. Pulse, motor, and sensory were intact in all extremities. NEUROLOGICAL: Patient is alert and oriented to person, place, and time, though does have periods of transient confusion where he can become slightly agitated as well. He is able to move all extremities, though he does have some generalized weakness noted. He does have some slight ataxia noted as well. His had reported that he has stated to her that he has had some blurry vision. ASSESSMENT AND PLAN: 1. Possible cerebrovascular accident. For further evaluation of this we have ordered a CT of the head without contrast as well as a CTA of the head and neck. We are awaiting those results. We will continue with continuous cardiac telemetry, frequent vital signs. We have ordered a lipid profile as well. We will continue with his regularly prescribed 325 mg aspirin, his Lipitor, and will try to bring down his blood pressure some, though given the possibility of a cerebrovascular accident, we will allow for some permissive hypertension as well. We have placed a consult with Dr. Corona with Neurology. 2. History of cerebral vascular vasculitis. We will continue his regularly prescribed medications for this of CellCept and prednisone. We will continue with treatment as mentioned above for #1 as well. 3. Urinary tract infection. We have placed the patient with antibiotic of Rocephin. We have placed a urine culture, we are awaiting those results at this time. 4. Hyperglycemia. The patient does not have a previous history of diabetes. He has been taking prednisone daily, which was just increased from 30 to 60 mg a day. This is likely steroid- induced hyperglycemia. We will go ahead and place him on a sliding scale insulin. We will continue to monitor this with pattern fingerstick blood sugars. 5. Coronary artery disease status post coronary artery bypass graft. We will continue his regularly prescribed cardiac medications. 6. History of atrial fibrillation. The patient's heart rate is controlled at this time. We will continue his daily prescribed medicine of digoxin. 7. Hypertension. We will continue his prescribed antihypertensive medications. 8. Deep vein thrombosis prophylaxis. We are awaiting his imaging studies of a CT of the head and CTA of the head and neck at this time. Until we have these results back, we will hold and anticoagulants at this time and place sequential compression devices. 9. Constipation. He did receive a suppository as well as a dose of lactulose in the ER. He has already had 1 bowel movement. We will continue with a regular bowel regimen of MiraLAX and Senokot twice daily. The patient has been placed on the medical floor with telemetry. He will have vital signs q.4 hours, strict intake and output, incentive spirometry. Further orders and recommendations pending hospital course, diagnostic studies, and physician evaluation. Dictated by ALBIN Tyson for Rena Valiente MD cc: MD Ludwig Preez MD [facility] HOSPITALHeidi
[2019-07-13] MEDS: HUMULIN R SUBQ SCH ×4 (06:09→20:20)
[2019-07-13] MEDS: PRILOSEC PO SCH ×2 (06:09→18:56)
[2019-07-13] MEDS ORDERED: TYLENOL PR PRN (06:36)
[2019-07-13 09:19] LABS: BASO# 0.01 X1000 (0.0-0.2); BASO% 0.2 % (0.0-0.8); EOS# 0.03 X1000 (0.0-0.7); EOS% 0.5 % (0.0-10.0); HEMATOCRIT 42.2 % (42.0-52.0); HEMOGLOBIN 13.7 g/dL (14.0-18.0); IMM GRAN# 0.33 X1000 (0.0-0.04); IMM GRAN% 5.9 % (0.0-0.5); LYMPH# 0.37 X1000 (1.2-3.4); LYMPH% 6.6 % (20.5-51.1); MCH 29.5 PG (27-31); MCHC 32.5 g/dL (33-37); MCV 90.8 FL (81-99); MONO# 0.87 X1000 (0.11-0.59); MONO% 15.6 % (1.7-9.3); MPV 11.5 FL (7.4-10.4); NEUT# 3.96 X1000 (1.4-6.5); NEUT% 71.2 % (42.2-75.2); PLT 99 X1000 (130-400); RBC 4.65 XMIL (4.7-6.1); RDW 16.1 % (11.5-14.5); WBC 5.57 X1000 (4.8-10.8)
[2019-07-13 09:21] LABS: AGAP 9; ALB/GLOB RATIO 1.1; ALBUMIN 2.7 g/dL (3.5-5.0); ALKALINE PHOSPHATASE 47 U/L (32-122); BUN 37 mg/dL (8-22); CALCIUM 9.7 mg/dL (8.8-10.2); CHLORIDE 98 mmol/L (98-107); COSMO 291; CREATININE 0.9 mg/dL (0.7-1.2); ESTIMATED GFR > 60; GLUCOSE 214 mg/dL (70-104); GOT 34 U/L (10-34); GPT 24 U/L (10-44); POTASSIUM 3.4 mmol/L (3.5-5.1); SODIUM 138 mmol/L (136-145); TCO2 31 mmol/L (25-35); TOTAL BILIRUBIN 0.78 mg/dL (0.20-1.00); TOTAL PROTEIN 5.2 g/dL (6.3-8.3)
--- NOTE | 2019-07-13 09:23 | PROGRESS NOTE ---
DATE: 07/13/2019 SUBJECTIVE: The patient is lying in bed. He seems to try and make a meaningful comment but he speaks in a low whispering voice and is very, very difficult to understand. I am not sure that he is oriented, although he can follow some commands and was able to swallow water using a straw. OBJECTIVE: Vital Signs: T-max 100.7 degrees, T now 100.7, pulse rate 85, respirations 16 and unlabored, blood pressure 138/90. It is noted that the patient's heart rate had accelerated into the 140s at some point in the middle of the night. He does have chronic atrial fibrillation. Fluid balance -1730. Physical Examination: The patient's lungs are generally clear and he is moving air well. There is no wheezing noted. No crackles in the bases. Cardiovascular: Irregularly irregular at approximately 85 beats per minute, as per vital signs. Extremities: Show no peripheral edema. Neuropsychiatric: The patient, as I said, was responsive but I do not think he is terribly oriented. He can follow some commands. His voice is very weak. Laboratory: Labs are pending this morning. His blood sugar has been in the high 100s to 200s on sliding scale insulin. Microbiology: He has gram-positive cocci in the urine with no ID or sensitivities yet. ASSESSMENT AND PLAN: 1. The patient's alteration in mental status is likely multifactorial. I had a long discussion with Dr. Daley yesterday about the treatment course. At the present time, we are going to treat the urinary tract infection as aggressively as possible and pull back on the patient's steroids. The patient has been started on Rocephin for the urinary tract infection. We are awaiting culture and sensitivity results to help us guide further therapy. 2. The patient had urinary retention at the time of admission and has a Quigley catheter in place at present. It appears he had a fairly large volume diuresis following relief. Urology has been consulted. He is on Flomax. 3. The patient's central nervous system vasculitis has been treated very aggressively. As per the patient's , he does not tolerate the rituximab very well. We have tapered down the steroids from 60 mg daily to 30 mg as there was no significant improvement and, in fact, it may have worked to his detriment in certain ways. 4. The patient's profound weakness is due to underlying conditions as well as some medications. Physical therapy has been initiated. The patient's prednisone has been decreased as a possibility of a steroid myopathy could also be in order here. 5. The patient's constipation was treated in the emergency room. He has achieved multiple bowel movement since then. 6. Diabetes is under better control with lower doses of steroids. He is on sliding scale insulin. 7. Hypertension, adequately controlled. 8. The patient's atrial fibrillation has been rate controlled up to this point. He is on his home regimen. We will have to monitor for signs of acute decompensation due to elevation in heart rate. Although he had elevated heart rate last night, there was no evidence of cardiovascular decompensation. 9. We will continue regular monitoring of lab work. 10. Deep venous thrombosis prophylaxis is in place. cc: MD Ludwig Pardo MD
[2019-07-13 09:59] LABS: BANDS 6 % (0-1); LYMPHS 10 % (21-51); SEGS 78 % (42-75)
[2019-07-13] MEDS: CELLCEPT PO SCH ×2 (10:01→20:21)
[2019-07-13] MEDS: SENOKOT PO SCH ×2 (10:02→20:21)
[2019-07-13] MEDS: CYMBALTA PO SCH ×2 (10:02→20:22)
[2019-07-13] MEDS: LANOXIN PO SCH (10:02)
[2019-07-13] MEDS: PREDNISONE PO SCH ×2 (10:02→20:21)
[2019-07-13] MEDS: FLOMAX PO SCH (10:02)
[2019-07-13] MEDS: NORVASC PO SCH (10:02)
[2019-07-13] MEDS: ASPIRIN PO SCH (10:03)
[2019-07-13] MEDS: LOVENOX SUBQ SCH (10:04)
[2019-07-13] MEDS: MIRALAX PO SCH ×2 (10:04→20:20)
--- NOTE | 2019-07-13 14:53 | CONSULTATION ---
DATE OF CONSULTATION: 07/13/2019 CHIEF COMPLAINT: Urinary retention. HISTORY OF PRESENT ILLNESS: Mr. Arizmendi is a 78-year-old who was admitted to the hospital yesterday due to profound weakness and altered mental status. This seemingly has gone on for a number of years now. The patient was diagnosed with some form of vasculitis leading to CONSTRUCTION TRENCH DIGGER changes. The patient currently is on prednisone and rituximab for this, and recently had mycophenolate added. Similarly, his condition continued to worsen. He was seen by his primary care physician yesterday and admitted to the hospital. The patient was significantly confused and altered. A CT scan of the head was performed, as well as the chest, abdomen, and pelvis. CT of the abdomen showed significant fecal impaction starting in the rectum and going superiorly to transverse colon. The patient was treated for a urinary tract infection and started on Rocephin. Indwelling catheter was inserted due to elevated postvoid residuals greater than 900, per report. Talking with the family today, the states that he has been going to the bathroom frequently with small volumes and they felt that he was not emptying his bladder all the way. The patient takes Flomax at home, which he has been on for a number of years now. The patient continues to be altered and a poor historian. He has a history of carcinoma in situ of the bladder that was treated at [facility] in 2006. The patient denies any fevers or chills, nausea, or vomiting at home. PAST MEDICAL HISTORY: 1. History of basal cell carcinomas and seborrheic keratoses. 2. Sanchez's esophagus. 3. BPH. 4. Gastroesophageal reflux disease. 5. Hypertension. 6. History of transient ischemic attacks. 7. Hyperlipidemia. 8. Iron deficiency anemia. 9. Coronary artery disease, status post coronary artery bypass graft. 10. Mitral regurgitation. 11. Paroxysmal atrial fibrillation, status post ablation. 12. Urothelial carcinoma of the bladder. 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 PAST SURGICAL HISTORY: 1. Resection of basal cell carcinomas. 2. Coronary artery bypass graft. 3. Resection of gastric pylorus, benign tumor. 4. Cardio ablation. 5. Watchman procedure. 6. Pacemaker placement. 7. Umbilical hernia repair. 8. Transurethral resection of bladder tumor MEDICATIONS: 1. Aspirin 325 mg. 2. Amlodipine 2.5 mg daily. 3. Digoxin 125 mcg. 4. Prednisone 30 mg b.i.d. 5. Duloxetine 30 mg b.i.d. 6. Mycophenolate 500 mg b.i.d. 7. Omeprazole 40 mg b.i.d. 8. Flomax 0.4 mg. 9. Lipitor 40 mg. 10. Trazodone 50 mg at bedtime. 11. Olanzapine 50 mg at bedtime. ALLERGIES: 1. Actos. 2. Crestor. 3. Niacin. 4. Zocor. SOCIAL HISTORY: Denies tobacco, alcohol, or illicit drug use. FAMILY HISTORY: Denies family history of malignancy. REVIEW OF SYSTEMS: Twelve-point review of systems reviewed with all pertinent positives and negatives in the HPI. PHYSICAL EXAMINATION: Vital Signs: Temperature 98.3 degrees, heart rate 80, blood pressure 116/76, oxygen saturation 96% on 2 L nasal cannula. General: Alert. Minimally oriented to person and place but not situation. Responds to commands. HEENT: Normocephalic, atraumatic. Pupils equal, round, and reactive to light. Mucous membranes moist. Respiratory: Good respiratory effort without audible wheezing or rales. Cardiovascular: Regular rate and rhythm. No evidence of lower extremity edema. Abdomen: Soft, nontender, nondistended. No palpable masses or hepatosplenomegaly. : No suprapubic tenderness. No CVA tenderness. Normal phallus with urethral catheter in place draining clear yellow urine. Bilateral testicles palpated without nodules or asymmetry. No palpable epididymal cysts. No palpable inguinal hernias. Digital rectal exam performed which showed minimal rectal tone with a large stool burden within the rectum. The prostate is small with no obvious nodularity or asymmetry. Neurologic: Moving all extremities on command. Slight decrease in lower extremity strength. Skin: No obvious skin lesions or rashes. LABS: White blood cell count 5.5, hemoglobin 13.7, hematocrit 42.2, platelets 99,000. Sodium 138, potassium 3.4, chloride 98, bicarb 31, BUN 37, creatinine 0.9, glucose 214, calcium 9.7. C reactive protein 54.9. Pro-B natriuretic peptide 1361. Urinalysis shows 2+ bacteria, large amount of leukocytes, 500 of glucose, trace blood. Urine culture in lab is growing gram positive cocci. IMAGING DATA: CT of the abdomen and pelvis reviewed which showed a large amount of stool within the colon going all the way from the rectum to the transverse colon. The patient has multiple cysts in the left kidney with some that are quite large. No obvious stones or renal masses. ASSESSMENT AND PLAN: Mr. Arizmendi is a 78-year-old with central nervous system vasculitis, Sanchez's esophagus, type 2 diabetes, hypertension, hyperlipidemia, history of recurrent transient ischemic attacks, paroxysmal atrial fibrillation, carcinoma in situ of the bladder, who presents in consultation regarding urinary retention. The patient has been having issues with urination at home for some period of time now. says that he goes to the bathroom and has small volumes. The patient had an elevated postvoid residual on presentation. Indwelling catheter was inserted when postvoid residual showed greater than 900 cc. The patient had good urinary output from his catheter with clear yellow urine. Renal functions remained stable. CT scan shows no evidence of hydronephrosis or nephrolithiasis. Does have several large cysts within the left kidney. The patient's prostate is not overly enlarged on exam today. The patient does have decreased rectal tone as well as a large burden of stool within the rectum. I think the patient likely is suffering from constipation-induced urinary retention as well as underlying issues related to his chronic medical conditions and recent transient ischemic attacks. The patient describes having a stroke back in March. The patient is minimally ambulatory and it is difficult for him to carry on a conversation with me. I think the patient's clinical condition continues to deteriorate and there is some discussion about a long-term care facility for him. I think patient needs to have improvement in his constipation. I recommended a vigorous bowel regimen. He has had 2 bowel movements since admission and I felt a large burden of stool within his rectum. He should continue with that. If the patient improves, we would consider a voiding trial while inpatient. The patient's prostate is not overly enlarged on exam. However, if he continues to have issues with urinary retention, may consider a procedure on his prostate. I think that surgical intervention is less beneficial long-term and optimization of his other comorbidities. Has positive urine culture would continue with culture specific antibiotics. We will continue to monitor from a urologic standpoint. Please call with questions or concerns. cc: MD Ludwig Keller MD MTDD
--- NOTE | 2019-07-13 15:15 | PROGRESS NOTE ---
DATE: 07/13/2019 LOCATION: Room 110. Mr. Arizmendi has had a rapid neurologic decline with extensive workup, and most recent diagnosis of cerebral vasculitis made at [facility]. He started steroids, and has had some trouble tolerating that. Steroid dose was reduced recently. We do not have the [facility] records here. Dr. Christopher saw him for Neurology here yesterday. I discussed with family at the bedside, the difficult diagnosis and management with cerebral vasculitis. I told them that there might be other options if he eventually cannot tolerate steroids. There has been question of recent stroke. We can get brain imaging here if we need to evaluate that further, but I do not think we would recommend any management changes, and I do not think imaging is urgent. I encouraged the family to keep followup at [facility]. If there is something we can do locally to save him a trip, we will be glad to try to provide that. Thank you for asking Neurology to see Mr. Arizmendi. cc: MD Ludwig Bolden III, MD MTDD
[2019-07-13] MEDS: LIPITOR PO SCH (20:21)
[2019-07-13] MEDS: TORADOL IV PRN (20:21)
[2019-07-13] MEDS: ZYPREXA PO SCH (20:22)
[2019-07-13] MEDS: DESYREL PO SCH (20:22)
[2019-07-14] MEDS: HUMULIN R SUBQ SCH ×4 (06:29→20:20)
[2019-07-14] MEDS: PRILOSEC PO SCH ×2 (06:31→18:31)
[2019-07-14] MEDS: ROCEPHIN 1 GM in NS 50 ML IV SCH (06:31)
--- NOTE | 2019-07-14 07:07 | PROGRESS NOTE ---
DATE: 07/14/2019 SUBJECTIVE: No acute events overnight. The patient's urethral catheter has been in place draining clear yellow urine. He has had multiple bowel movements yesterday, 8 bowel movements are recorded. The patient had good urinary output through the catheter with 1000 cc recorded. Tolerating a diet but has been refusing p.o. intake several times. Remains slightly altered, but able to carry on a conversation with nursing per report. OBJECTIVE: Vital signs: Temperature 98.2 degrees, heart rate 65, blood pressure 151/89, oxygen 97% over nasal cannula. General: No acute distress. Resting comfortably in bed. Abdomen: Soft, nondistended, nontender. No palpable hepatosplenomegaly. Genitourinary: No suprapubic tenderness. No CVA tenderness. Urethral catheter in place draining clear yellow urine. LABORATORY DATA: White blood cell count 5.57, hemoglobin 13.7, hematocrit 42.2, platelets 99,000. Sodium 138, potassium 3.4, chloride 98, bicarbonate 31, BUN 37, creatinine 0.9, glucose 214. ASSESSMENT AND PLAN: Mr. Arizmendi is a 78-year-old with central nervous system vasculitis, Sanchez's esophagus, type 2 diabetes, hypertension, hyperlipidemia, history of recurrent transient ischemic attacks, paroxysmal atrial fibrillation, and carcinoma in situ of the bladder, who was seen in consultation regarding urinary retention and constipation. Patient had multiple bowel movements yesterday with 8 recorded. The patient continues to have good urinary output with approximately 1000 recorded. The patient remains resting comfortably in bed. I think patient is having improvement in his constipation. However, I am uncertain whether he has some baseline neurologic changes to his bladder, which is likely true after his transient ischemic attacks and recurrent vasculitis. We will continue to monitor. We will keep indwelling catheter in at this time until more alert. The patient's urine culture is growing gram-positive cocci. Will continue to follow up and would recommend culture-specific antibiotics once returns. cc: MD Ludwig Keller MD MTDD
[2019-07-14] MEDS: ASPIRIN PO SCH (08:29)
[2019-07-14] MEDS: FLOMAX PO SCH (08:29)
[2019-07-14] MEDS: CELLCEPT PO SCH ×2 (08:29→20:18)
[2019-07-14] MEDS: NORVASC PO SCH (08:29)
[2019-07-14] MEDS: CYMBALTA PO SCH ×2 (08:30→20:19)
[2019-07-14] MEDS: LANOXIN PO SCH (08:30)
[2019-07-14] MEDS: MIRALAX PO SCH ×2 (08:34→20:18)
[2019-07-14] MEDS: SENOKOT PO SCH ×2 (08:34→20:19)
[2019-07-14] MEDS: LOVENOX SUBQ SCH (08:35)
[2019-07-14] MEDS: PREDNISONE PO SCH ×2 (08:35→20:19)
--- NOTE | 2019-07-14 10:28 | PROGRESS NOTE ---
DATE: 07/14/2019 SUBJECTIVE: I met the patient's in the causey and we talked extensively. Upon entering the room, the patient was sitting on the side of the bed having just finished walking with Physical Therapy. The physical therapist told me that it "wasn't pretty, but he did walk." According to the patient's , over the course of yesterday, he improved from the morning. He was in pretty rough shape from an orientation and strength perspective in the morning, but did have 1 drenching sweat during the day and then after that seemed to settle down nicely and continued a trajectory of improvement throughout the day and evening. He slept well last night and had no complications. OBJECTIVE: Vital Signs: 98.2, 151/89, pulse rate of 65, 97% saturated on 2 L nasal cannula. T- max is 98.9 degrees. Fluid balance from yesterday was negative 1730. I think is in large part due to diuresis from urinary retention. He has 1 bowel movement listed. P.o. intake is poor. The patient is alert, sitting on the side of the bed. He shook my hand and seemed to attempt to interact in an appropriate fashion. His voice is still weak, but it is much more intelligible and fluid today. Neck: There is no JVD. Lungs are clear to auscultation. Cardiovascular: Actually sounds regular today. I do not hear an appreciable murmur or gallop, but it is quite noisy in the room and auscultation was somewhat difficult. Extremities show no peripheral edema. LABORATORY: The patient had a lab holiday today. Blood sugars are hovering around the 200 range. ASSESSMENT AND PLAN: 1. The patient's alteration in mental status is improving despite the multiple factors working against him. I think addressing the urinary tract infection has been the most effective means of combatting his mental status change. The patient's urinary culture grew back group D enterococcus, which had no resistance. The patient should be adequately covered on Rocephin. I am going to keep him on that for now. 2. Urinary retention is being followed by Dr. Rios. His note has been read. 3. The patient's central nervous system vasculitis has been treated aggressively. Steroids were tapered down with improvement in blood sugar and I do not think any ill affects for his mentation have been noted. We will continue to monitor this. I am making no change in his CellCept dose. 4. Dr. Corona's notes have been reviewed as well. 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 5. Profound weakness seems to be improving as the patient was upright today, whereas yesterday he was completely laid out and dependent. The possibility of steroid myopathy still remains. I am not planning on tapering down the steroids any further for the time being. 6. Constipation has been relieved. 7. The patient's diabetes is under better control with lower doses of steroids. Sliding scale insulin is being employed. He still hovering around 200. We may make some slight adjustments to that. 8. Hypertension. The patient's elevated blood pressure is noted, but I do not think it is in a dangerous range and plan to make no changes at the present time unless it seems to spiral out of control. 9. Atrial fibrillation is noted. Today he sounded like he was in rhythm to my ears. He has had a Watchman procedure and a pacemaker installed. 10. We will recheck labs tomorrow morning. 11. Deep venous thrombosis prophylaxis is in place. cc: MD Ludwig Pardo MD
[2019-07-14] MEDS: TORADOL IV PRN (12:36)
[2019-07-14] MEDS: LANTUS INSULIN SUBQ SCH (19:53)
[2019-07-14] MEDS: ZYPREXA PO SCH (20:18)
[2019-07-14] MEDS: DESYREL PO SCH (20:19)
[2019-07-14] MEDS: LIPITOR PO SCH (20:19)
[2019-07-14] MEDS: ATIVAN IV PRN (23:22)
[2019-07-15 05:14] LABS: BASO# 0.01 X1000 (0.0-0.2); BASO% 0.2 % (0.0-0.8); EOS# 0.05 X1000 (0.0-0.7); EOS% 1.1 % (0.0-10.0); HEMATOCRIT 42.5 % (42.0-52.0); HEMOGLOBIN 13.9 g/dL (14.0-18.0); IMM GRAN# 0.21 X1000 (0.0-0.04); IMM GRAN% 4.6 % (0.0-0.5); LYMPH# 0.29 X1000 (1.2-3.4); LYMPH% 6.3 % (20.5-51.1); MCHC 32.7 g/dL (33-37); MCV 88.7 FL (81-99); MONO% 17.5 % (1.7-9.3); MPV 11.6 FL (7.4-10.4); NEUT# 3.22 X1000 (1.4-6.5); NEUT% 70.3 % (42.2-75.2); PLT 119 X1000 (130-400); RBC 4.79 XMIL (4.7-6.1); RDW 15.3 % (11.5-14.5); WBC 4.58 X1000 (4.8-10.8)
[2019-07-15 05:54] LABS: ALBUMIN 2.8 g/dL (3.5-5.0); CALCIUM 9.7 mg/dL (8.8-10.2); CREATININE 1.2 mg/dL (0.7-1.2); POTASSIUM 3.5 mmol/L (3.5-5.1); TOTAL BILIRUBIN 0.53 mg/dL (0.20-1.00); TOTAL PROTEIN 5.6 g/dL (6.3-8.3)
[2019-07-15] MEDS: HUMULIN R SUBQ SCH ×4 (06:45→20:52)
[2019-07-15] MEDS: ROCEPHIN 1 GM in NS 50 ML IV SCH (06:45)
[2019-07-15] MEDS: PRILOSEC PO SCH ×2 (06:45→19:10)
[2019-07-15] MEDS: NORVASC PO SCH ×2 (06:46→09:12)
[2019-07-15] MEDS: ATIVAN IV PRN ×2 (07:40→23:23)
--- NOTE | 2019-07-15 08:08 | PROGRESS NOTE ---
DATE: 07/15/2019 SUBJECTIVE: No acute events overnight. The patient remains afebrile. Good urinary output through urethral catheter. The patient had multiple bowel movements yesterday with 7 bowel movements recorded. The patient continues to have limited p.o. intake and is intermittently agitated. PHYSICAL EXAMINATION: Vital signs: Temperature 97.8 degrees, heart rate 75, blood pressure 212/118, oxygen 98% on room air. General: Slightly agitated, alert, oriented to person, but not place or time. Respiratory: Good respiratory effort without audible wheezing or rales. Cardiovascular: Regular rate and rhythm. Abdomen: Soft, nontender, nondistended. Genitourinary: Urethral catheter in place draining clear yellow urine. No suprapubic tenderness. No CVA tenderness. No evidence scrotal edema or penile erythema. LABORATORY DATA: White blood cell count 4.6, hemoglobin 13.9, hematocrit 42.5, platelets 119,000. Sodium 138, potassium 3.7, chloride 98, bicarb 31, BUN 50, creatinine 1.2. ASSESSMENT AND PLAN: Mr. Arizmendi is a 78-year-old with central nervous system vasculitis, Sanchez's esophagus, type 2 diabetes, hypertension, hyperlipidemia, history of recurrent transient ischemic attacks, paroxysmal atrial fibrillation, and carcinoma in situ of the bladder, who presents in consultation regarding urinary retention. The patient has indwelling catheter in which is draining well. The patient has a history of bladder cancer and was treated at [facility], but was released from their care earlier this year after being diagnosed with bladder cancer in 2006 per his . The patient's urine is clear yellow. The patient denies any suprapubic or costovertebral tenderness. The patient's urine culture is growing Enterococcus. We will stop his Rocephin and transition to Macrobid, as a culture specific p.o option for antibiotics. The patient will likely need long-term indwelling catheter due to baseline decompensation. 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 Discussed this with his today. Could plan to remove his Quigley catheter during this hospitalization and performed PVRs to see how well he does, but I feel like he likely will have issues with emptying his bladder in the future. We will continue to monitor from a urologic standpoint. Please call with questions or concerns. cc: MD Ludwig Keller MD [facility] HOSPITALHeidi
--- NOTE | 2019-07-15 10:24 | PROGRESS NOTE ---
DATE: 07/15/2019 Mr. Arizmendi was admitted by Dr. Daley on 07/11. He is a patient of Dr. Daley. He came in with profound weakness, alteration in mental status. A 78-year-old, very complicated past medical history. Present illness began over the course of the last 2 to 3 years. I think back in January of this year he was diagnosed with cerebral vasculitis. He has a history of atrial fibrillation. The patient has been treated with prednisone and rituximab and mycophenolate was added. The patient's clinical condition got a little worse, alteration in his mental status. Approximately a week ago sent to [facility], prednisone was doubled from 30 to 60. He has developed progressive weakness. He did not have a bowel movement, was admitted for obstipation. Did not sleep much last night at all. Family says he seems to be a little worse as far as his mental status from yesterday. PHYSICAL EXAM: The family at the bedside. He is sleeping. Temperature 97.8 degrees, pulse 75, respirations 16, blood pressure 212/119. His blood pressures have been 151 to 212/118. Diastolic pressures have been above 90. Urine output 1700 mL. REVIEW OF LABS: This morning white count 4580, hematocrit 42, platelet count 119,000. Sodium 138, potassium 3.5, chloride 98, BUN 50, and creatinine 1.2, blood sugar is 283, 187, 173. ASSESSMENT AND PLAN: 1. Dr. Rios did see. The patient's urine was growing enterococcus. Stopped his Rocephin and transitioned to Macrobid for p.o. option of antibiotics. Will need long-term indwelling catheter due to baseline decompensation. The patient has had a stroke, CVA, but otherwise TANK TESTER vasculitis which is related to his neurogenic bladder and likely will have issues with emptying the bladder in the future. 2. The patient's alteration in mental status improving. See if we can time his Zyprexa to take at about 7 o'clock instead of later on. 3. Central nervous system vasculitis, been treated aggressively. Steroids are tapered down with improvement in blood sugar. 4. Profound weakness. 5. Constipation, which is getting some relief. 6. Diabetes mellitus type 2, under better control within the reduction in steroids. 7. Hypertension. 8. Atrial fibrillation. The patient appears to be in sinus rhythm at this time. He has had a Watchman procedure and the pacemaker has been placed. He is on amlodipine 2.5 mg a day. I think I will try to go up on his amlodipine to 5 mg twice a day to see if that will help the blood pressure. We will see if we can change his Zyprexa to take it at 7 o'clock. cc: MD Ludwig June MD MTDD
[2019-07-15] MEDS: LANTUS INSULIN SUBQ SCH (10:35)
[2019-07-15] MEDS: MACROBID PO SCH ×4 (10:38→20:20)
[2019-07-15] MEDS: LOVENOX SUBQ SCH (10:39)
[2019-07-15] MEDS: SENOKOT PO SCH ×2 (10:41→20:20)
[2019-07-15] MEDS: CYMBALTA PO SCH ×3 (10:41→20:20)
[2019-07-15] MEDS: FLOMAX PO SCH (10:42)
[2019-07-15] MEDS: CELLCEPT PO SCH ×3 (10:42→20:19)
[2019-07-15] MEDS: PREDNISONE PO SCH ×3 (10:43→20:21)
[2019-07-15] MEDS: ASPIRIN PO SCH (10:43)
[2019-07-15] MEDS: MIRALAX PO SCH ×2 (10:44→20:20)
[2019-07-15] MEDS: LANOXIN PO SCH (10:47)
[2019-07-15] MEDS: ZYPREXA PO SCH (19:08)
[2019-07-15] MEDS: LIPITOR PO SCH ×2 (19:08→20:20)
[2019-07-15] MEDS: DESYREL PO SCH (19:16)
[2019-07-16] MEDS: PRILOSEC PO SCH ×2 (06:42→18:53)
[2019-07-16] MEDS: HUMULIN R SUBQ SCH ×4 (06:42→21:01)
[2019-07-16] MEDS ORDERED: COREG PO ONE (09:50)
--- NOTE | 2019-07-16 10:09 | PROGRESS NOTE ---
DATE: 07/16/2019 SUBJECTIVE: The patient was kind of in and out of it all day yesterday. He was able to wake up and eat some meat, as well as some pudding and yogurt, which was hopeful. Physical Therapy did not come by yesterday. He received his nighttime medications at 7 p.m. as directed, and had a solid night's sleep. He is awake this morning. OBJECTIVE: Vital Signs: Temperature 97.6, pulse 81, respirations 18, initial blood pressure reading was 184/112, the last few readings have been elevated in the diastolic range, and we will need to address this. General: He is a well-developed, white male in no acute distress. He is lying in bed with his eyes open. He responds to questions in a semi-meaningful way, which I think is his baseline. He has family and friends present, and is interacting a bit with them. Lungs: Clear to auscultation. Cardiovascular: Regular. Extremities: No peripheral edema in the dependent areas. LABORATORY DATA: Today was a lab holiday. We will recheck that tomorrow. We do note that his blood sugars have varied into the low-to-mid 200s, down to 164 this morning. He is getting Lantus 10 units. ASSESSMENT AND PLAN: 1. Mental status is approaching baseline. Multiple factors have gotten him out of sorts, not the least of which was his group D enterococcus infection. The patient remains on Rocephin. 2. Urinary retention is followed by Dr. Rios. The patient still has a Quigley catheter in place. 3. Central nervous system vasculitis is unchanged. His steroids are still at 30 mg daily in divided doses. He is still on CellCept, and only gets periodic infusions of his other biologic agent. 4. The patient's weakness remains a very important factor in the discharge planning. Physical Therapy is working with him. Hopefully, they will come by today and be able to get him up for a little bit. 5. The patient's hypertension seems to spiral out of control. I am going to make some adjustments on medications. 6. The patient has paroxysmal atrial fibrillation. He has had a Watchman procedure and a pacemaker. He appears to be in sinus rhythm to my ears today. 7. Labs tomorrow. 8. Deep venous thrombosis prophylaxis is in place. cc: MD Ludwig Pardo MD
[2019-07-16] MEDS: CELLCEPT PO SCH ×2 (10:12→21:01)
[2019-07-16] MEDS: ASPIRIN PO SCH (10:12)
[2019-07-16] MEDS: FLOMAX PO SCH (10:13)
[2019-07-16] MEDS: NORVASC PO SCH (10:13)
[2019-07-16] MEDS: CYMBALTA PO SCH ×2 (10:13→20:59)
[2019-07-16] MEDS: PREDNISONE PO SCH ×2 (10:15→21:00)
[2019-07-16] MEDS: LANOXIN PO SCH (10:17)
[2019-07-16] MEDS: LOVENOX SUBQ SCH (10:18)
[2019-07-16] MEDS: MACROBID PO SCH ×2 (10:24→21:39)
[2019-07-16] MEDS: MIRALAX PO SCH ×2 (10:25→20:23)
[2019-07-16] MEDS: SENOKOT PO SCH ×2 (10:25→20:24)
[2019-07-16] MEDS: LANTUS INSULIN SUBQ SCH (11:11)
[2019-07-16] MEDS: TORADOL IV PRN (11:16)
--- NOTE | 2019-07-16 14:59 | PROGRESS NOTE ---
DATE: 07/16/2019 SUBJECTIVE: No acute events overnight. The patient was less agitated last night. Catheter is draining well with clear, yellow urinary output. OBJECTIVE: Vitals: The patient's vital signs have been stable. Temperature 97.4 degrees, heart rate 75, blood pressure 188/115 with oxygen saturation 97% on room air. General: Minimally alert. Not oriented to person, place, or time. No evidence of agitation. Respiratory: Good respiratory effort without audible wheezing or rales. Cardiovascular: Regular rhythm and rate. Abdomen: Soft, nontender, nondistended. : No suprapubic tenderness. No CVA tenderness. Urethral catheter in place draining clear yellow urine. No evidence of clots. MICROBIOLOGY: Grew Enterococcus sensitive to everything except tetracycline. The patient currently on Macrobid. ASSESSMENT AND PLAN: Mr. Arizmendi is a 78-year-old with central nervous system vasculitis, Sanchez's esophagus, type 2 diabetes, hypertension, hyperlipidemia, history of recurrent transient ischemic attacks, paroxysmal atrial fibrillation, carcinoma in situ of the bladder, who presents in consultation regarding urinary retention. The patient had indwelling catheter inserted due to retention when he was constipated. The patient continues to be intermittently agitated and confused. Uncertain if this is related to urinary tract infection with enterococcus versus baseline decompensation. The patient has his son and friend at bedside. We had a long conversation again today regarding their father's health issues and current clinical status. I told them that I could not comment about a long-term outcomes from a neurologic standpoint. However, I am concerned the patient may have some issues with urination long- term. I also expressed my desire to try to remove the catheter to ensure that he is not describing overactive bladder symptoms versus urinary retention at home. I think patient likely has baseline neurogenic bladder related to prior stroke and vasculitis. I think long-term he likely will need to have indwelling catheter just due to easy maintenance of his urinary system and ease of care. I do not think the patient will be able to self-catheterize himself, and I think taking care of him urinating into a urinal or into a diaper will be quite difficult due to his size and minimal mobility. Discussed the possibility to try to remove his catheter while an inpatient at some point. The patient's is not at bedside today. We will revisit with her in the coming days to attempt a possible voiding trial in the future. We will continue to monitor from a urologic standpoint. cc: MD Ludwig Keller MD MTDD
[2019-07-16] MEDS: ATIVAN PO PRN (17:02)
[2019-07-16] MEDS: TYLENOL PO PRN (17:05)
[2019-07-16] MEDS: DESYREL PO SCH (18:53)
[2019-07-16] MEDS: ZYPREXA PO SCH (18:53)
[2019-07-16] MEDS: LIPITOR PO SCH (21:00)
[2019-07-16] MEDS ORDERED: COREG PO SCH (21:00)
[2019-07-16] MEDS ORDERED: DOXYCYCLINE PO SCH (21:00)
[2019-07-17] MEDS: HUMULIN R SUBQ SCH ×4 (06:41→21:05)
[2019-07-17] MEDS: PRILOSEC PO SCH (06:42)
[2019-07-17] MEDS: TYLENOL PO PRN (07:36)
--- NOTE | 2019-07-17 08:39 | PROGRESS NOTE ---
DATE: 07/17/2019 SUBJECTIVE: He developed some bleeding around the catheter yesterday. This seemingly has stopped today. Nursing or cannot quantify how much bleeding there was. He was minimally agitated overnight. His catheter has been draining clear yellow urine with no evidence of clots. He denies any pain this morning. PHYSICAL EXAMINATION: Vital Signs: Temperature 98 degrees, heart rate 73, blood pressure 167/103, oxygen 97% on room air. General: No acute distress. Resting comfortably in bed. Alert and eating. Oriented to person, but not place, time, or situation. Respiratory: Good respiratory effort without audible wheezing or rales. Abdomen: Soft, nontender, nondistended. Genitourinary: No suprapubic tenderness. No CVA tenderness. Urethral catheter in place draining clear yellow urine. A small amount of bleeding is seen on his diaper, but no active bleeding is seen at the insertion site of the catheter. No evidence of any clots within his urinary bag. Normal testicles bilaterally. LABORATORIES: Urine culture growing Enterococcus faecalis on 07/12/2019 on Macrobid. ASSESSMENT AND PLAN: Mr. Arizmendi is a 78-year-old with central nervous system vasculitis, Sanchez's esophagus, type 2 diabetes, hypertension, hyperlipidemia, history of recurrent transient ischemic attacks, paroxysmal atrial fibrillation, carcinoma in situ of the bladder, who presented in consultation regarding urinary retention. The patient has had an indwelling catheter, which likely is related to constipation. He had most of the bleeding around the catheter yesterday, which seems to have resolved. I think this is likely related to pulling on the catheter and agitation. The patient continues to be altered and not significantly interactive on exam. The patient mumbles some words that do not make sense today. 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 I talked with the today, and she states that they are going to have a conversation with Dr. Daley tomorrow regarding penitentiary plan of care. I think it is reasonable to continue to leave the catheter in at this time to assist in drainage of his urine. I would love to remove his catheter at some point in future, but I do not think the patient will likely be able to urinate spontaneously at this time. We will continue to monitor from a urologic standpoint. Please call with questions or concerns. cc: MD Ludwig Keller MD [facility]
[2019-07-17] MEDS: ATIVAN PO PRN (08:58)
[2019-07-17] MEDS ORDERED: ZYPREXA IM PRN (10:50)
[2019-07-17] MEDS ORDERED: SODIUM CHLORIDE 0.9% INJ SCH (11:00)
[2019-07-17] MEDS ORDERED: MORPHINE IV PRN (11:09)
[2019-07-17] MEDS: FLOMAX PO SCH (11:41)
[2019-07-17] MEDS: 1/2 NS 1,000 ML IV SCH (11:56)
[2019-07-17] MEDS: PROTONIX IV SCH (11:57)
[2019-07-17] MEDS: LANOXIN IV SCH (11:57)
[2019-07-17] MEDS: SOLU-MEDROL IV SCH ×2 (11:58→22:36)
[2019-07-17] MEDS: ROCEPHIN 1 GM in NS 50 ML IV SCH (11:58)
--- NOTE | 2019-07-17 12:04 | PROGRESS NOTE ---
DATE: 07/17/2019 SUBJECTIVE: The patient's is in tears. He apparently had a very bad day yesterday, and was unable to swallow without extreme difficulty. He was never oriented, did not wake up. Attempts to get him to sit up were unsuccessful. He is not eating. He cries out in pain when he is more alert, but generally is not making sense. She presented me with a living will in the presence of 6 additional family members and friends, who were present in the room. Yesterday, the patient's IVs infiltrated, and at some point, ultrasound was used to try and start an IV in his left biceps, but this failed as well. They were questioning whether they should put in some other type of access for at least pain medication and administration of usual medications. The big question was whether this constituted extraordinary means. Eventually, they settled on putting in a central line and changing most of his medications to IV format for the time being, and then further therapy going down the line can be addressed with her primary care doctor. OBJECTIVE: Vital Signs: Temperature 98.0, pulse 73, respirations 20, blood pressure 167/103, saturating 97% on room air. General: The patient is in bed, asleep. He will mumble, but does not make much sense, and is really unintelligible. He does not appear to be oriented. HEENT: Oral mucosa is absolutely parched. Lungs: Clear to auscultation. Cardiovascular: Appears regular to me. Abdomen: Bowel sounds are present. Extremities: No peripheral edema. LABORATORY DATA: There was no lab drawn today. We will re-draw lab tomorrow. ASSESSMENT AND PLAN: 1. The patient's mental status has not improved despite my previous notes that showed him with some improvement. Yesterday, I had stated that the patient remained on Rocephin, but he had been switched to nitrofurantoin per Dr. Rios. This should cover his urinary tract infection, and so we will put him back on Rocephin for the time being. 2. Urinary retention is followed by Dr. Rios. I was told that the patient had bleeding around his catheter site, and I discontinued his Lovenox yesterday. 3. The patient's central nervous system vasculitis or other organic brain disease is essentially unchanged. We will switch his steroids to intravenous format. He will be unable to take the CellCept anymore. He is not scheduled for any biologic infusion for another 2 months, but I do not think that will be an issue. 4. The patient's overall weakness and non-recoverability has essentially failed despite Physical Therapy working with him and getting positive reports on several occasions, 5. The patient's hypertension is quite variable. I switched him to intravenous format for control in that regard. 6. Paroxysmal atrial fibrillation. The patient has had a Watchman procedure and a pacemaker. He appears to be in sinus rhythm. I am going to continue his digoxin by intravenous means. 7. Labs will be recheck tomorrow. 8. Deep venous thrombosis prophylaxis has been canceled due to genitourinary bleeding issues. 9. The family agreed to DO NOT RESUSCITATE level 1. cc: MD Ludwig Pardo MD
[2019-07-17] MEDS: LANTUS INSULIN SUBQ SCH (12:29)
[2019-07-17] MEDS: MORPHINE IV PRN ×4 (12:30→23:46)
--- NOTE | 2019-07-17 12:44 | OPERATIVE NOTE ---
PROCEDURE DATE: 07/17/2019 PREOPERATIVE DIAGNOSIS: Phlebosclerosis. POSTOPERATIVE DIAGNOSIS: Phlebosclerosis. PROCEDURE: Ultrasound-guided right common femoral vein central line placement. SURGEON: Jacob Lee MD. SILVERSMITH APPRENTICE: None. ANESTHESIA: Local administered by the surgeon. INTRAOPERATIVE FINDINGS: Ultrasound showed decent caliber right common femoral vein. BRIEF HISTORY: A 78-year-old male who with phlebosclerosis, in need for IV medications. The risks, benefits, and alternatives were discussed with the family. Consent was obtained. DESCRIPTION OF PROCEDURE: After informed consent was obtained from the family, the patient remained in his bed. The right groin was prepped and draped in sterile fashion. After the time- out, we turned our attention to the right groin. We used ultrasound to identify the vein. Under local anesthetic, I was able to cannulate it and pass a wire. I was not able to serially dilate up the tract without difficulty in the typical Seldinger technique to place the tip of the catheter in the common femoral vein not in the common iliac vein. All ports aspirated and flushed easily. We secured it in place and placed a sterile dressing. The patient tolerated the procedure well, and remained in his bed. cc: MD Ludwig Salmeron MD
[2019-07-17] MEDS: LABETALOL IV PRN ×2 (14:41→21:05)
[2019-07-18] MEDS: 1/2 NS 1,000 ML IV SCH (00:38)
[2019-07-18] MEDS: MORPHINE IV PRN ×5 (05:46→18:23)
[2019-07-18] MEDS: LABETALOL IV PRN ×3 (05:47→23:19)
[2019-07-18] MEDS: HUMULIN R SUBQ SCH ×4 (06:52→21:16)
[2019-07-18 07:50] LABS: BASO# 0.02 X1000 (0.0-0.2); BASO% 0.5 % (0.0-0.8); EOS# 0.01 X1000 (0.0-0.7); EOS% 0.3 % (0.0-10.0); HEMATOCRIT 39.9 % (42.0-52.0); HEMOGLOBIN 13.1 g/dL (14.0-18.0); LYMPH# 0.33 X1000 (1.2-3.4); LYMPH% 8.4 % (20.5-51.1); MCH 29.6 PG (27-31); MCHC 32.8 g/dL (33-37); MCV 90.1 FL (81-99); MONO% 15.3 % (1.7-9.3); MPV 10.6 FL (7.4-10.4); NEUT# 2.96 X1000 (1.4-6.5); NEUT% 75.5 % (42.2-75.2); PLT 143 X1000 (130-400); RBC 4.43 XMIL (4.7-6.1); RDW 15.2 % (11.5-14.5); WBC 3.92 X1000 (4.8-10.8)
[2019-07-18 07:56] LABS: AGAP 10; ALB/GLOB RATIO 1.2; ALBUMIN 2.8 g/dL (3.5-5.0); ALKALINE PHOSPHATASE 49 U/L (32-122); BUN 26 mg/dL (8-22); CALCIUM 9.1 mg/dL (8.8-10.2); CHLORIDE 99 mmol/L (98-107); COSMO 286; CREATININE 0.9 mg/dL (0.7-1.2); ESTIMATED GFR > 60; GLUCOSE 198 mg/dL (70-104); GOT 22 U/L (10-34); GPT 32 U/L (10-44); POTASSIUM 3.8 mmol/L (3.5-5.1); SODIUM 138 mmol/L (136-145); TCO2 29 mmol/L (25-35); TOTAL BILIRUBIN 0.44 mg/dL (0.20-1.00); TOTAL PROTEIN 5.1 g/dL (6.3-8.3)
[2019-07-18] MEDS: LANOXIN IV SCH (09:15)
[2019-07-18] MEDS: LANTUS INSULIN SUBQ SCH (09:17)
[2019-07-18] MEDS: FLOMAX PO SCH (11:05)
[2019-07-18] MEDS: ROCEPHIN 1 GM in NS 50 ML IV SCH (11:39)
[2019-07-18] MEDS: SOLU-MEDROL IV SCH ×2 (11:39→23:15)
[2019-07-18] MEDS: PROTONIX IV SCH (11:40)
[2019-07-18 14:43] LABS: BASO# 0.02 X1000 (0.0-0.2); BASO% 0.4 % (0.0-0.8); EOS# 0.02 X1000 (0.0-0.7); EOS% 0.4 % (0.0-10.0); HEMATOCRIT 41.3 % (42.0-52.0); HEMOGLOBIN 13.7 g/dL (14.0-18.0); IMM GRAN# 0.41 X1000 (0.0-0.04); IMM GRAN% 9.2 % (0.0-0.5); LYMPH# 0.35 X1000 (1.2-3.4); LYMPH% 7.8 % (20.5-51.1); MCH 29.1 PG (27-31); MCHC 33.2 g/dL (33-37); MCV 87.9 FL (81-99); MONO# 0.58 X1000 (0.11-0.59); MONO% 12.9 % (1.7-9.3); MPV 10.8 FL (7.4-10.4); NEUT% 69.3 % (42.2-75.2); PLT 158 X1000 (130-400); WBC 4.48 X1000 (4.8-10.8)
[2019-07-18] MEDS: ATIVAN PO PRN (14:57)
[2019-07-18 15:44] LABS: ANISOCYTOSIS OCCASIONAL; BANDS 10 % (0-1); EOS 2 % (1-10); LYMPHS 6 % (21-51); MONO 6 % (1-9); SEGS 70 % (42-75)
[2019-07-18] MEDS ORDERED: GEODON IM PRN (20:56)
[2019-07-18] MEDS ORDERED: STERILE WATER INJ. INJ PRN (20:56)
[2019-07-18 21:28] LABS: BASO# 0.02 X1000 (0.0-0.2); BASO% 0.4 % (0.0-0.8); EOS# 0.01 X1000 (0.0-0.7); EOS% 0.2 % (0.0-10.0); HEMATOCRIT 41.4 % (42.0-52.0); HEMOGLOBIN 13.5 g/dL (14.0-18.0); IMM GRAN# 0.34 X1000 (0.0-0.04); IMM GRAN% 6.9 % (0.0-0.5); LYMPH# 0.53 X1000 (1.2-3.4); LYMPH% 10.8 % (20.5-51.1); MCH 28.8 PG (27-31); MCHC 32.6 g/dL (33-37); MCV 88.3 FL (81-99); MONO# 0.88 X1000 (0.11-0.59); MONO% 17.9 % (1.7-9.3); NEUT# 3.13 X1000 (1.4-6.5); NEUT% 63.8 % (42.2-75.2); PLT 177 X1000 (130-400); RBC 4.69 XMIL (4.7-6.1); RDW 15.1 % (11.5-14.5); WBC 4.91 X1000 (4.8-10.8)
[2019-07-18 21:50] LABS: ANISOCYTOSIS OCCASIONAL; BANDS 4 % (0-1); LYMPHS 7 % (21-51); MONO 12 % (1-9); SEGS 69 % (42-75)
[2019-07-18] MEDS: ZOSYN 3.375 GM in NS 50 ML IV SCH (21:59)
[2019-07-18] MEDS: ATIVAN IV PRN (22:00)
--- NOTE | 2019-07-18 23:26 | PROGRESS NOTE ---
DATE: 07/18/2019 SUBJECTIVE: The patient's chart was reviewed. In summary, over the weekend the patient's overall condition was largely unchanged. He continued to have intermittent episodes of confusion. He remains profoundly weak. This morning, upon my arrival, the patient was conversant, although minimally. Throughout the day, unfortunately, the patient developed hematochezia/maroon stools. He complains of some groin/lower abdominal discomfort. Oral intake remains marginal. There has been no evidence of fevers, chills, nausea, vomiting, shortness of breath or chest discomfort. OBJECTIVE: T-max 97.9 degrees, heart rate 64 to 80, respirations 18 to 20, blood pressure 165 to 215 over 99 to 118.General: Ill-appearing, no acute distress. Cardiovascular: Regular rate and rhythm. No significant murmurs, rubs or gallops. Pulmonary: Clear to auscultation bilaterally. Abdomen: Soft. Mild tenderness in the suprapubic and lower abdomen without guarding or rebound. Positive bowel sounds. Extremities: Moves all extremities well. No significant clubbing, cyanosis or edema. Dermatologic: Evaluation reveals no evidence of rash. LABORATORY DATA: White blood cell count 4.91, hemoglobin 13.5, hematocrit 41.4, platelet count is 177,000. Sodium 138, potassium 3.8, chloride 99, bicarbonate 29, BUN 26, creatinine 0.9, glucose 198, calcium 9.1, total bilirubin 0.44, total protein 5.1, albumin 2.8, alkaline phosphatase 49, AST 22, ALT 32. ASSESSMENT AND PLAN: 1. Alteration of mental status: Differential diagnosis remains quite broad. He is currently being treated for a urinary tract infection. Medications have been tapered. Despite aggressive intervention, the patient's mental status remains intermittently altered. We will again decrease Solu-Medrol to 20 mg daily. We will follow his clinical course closely. We will also remain aware that mental status changes may be secondary to central nervous system vasculitis. 2. Urinary tract infection: The patient's urine culture grew enterococcus. We will transition the patient to Zosyn therapy. 3. Urinary retention: Quigley catheter remains in place. We will remain aware. 4. Hematochezia/maroon stools: The patient has passed a considerable amount of blood throughout the day today. Serial hemoglobin and hematocrit, however, have suggested stability. As above, we will transition the patient's antibiotics to Zosyn therapy to cover for the possibility of diverticulitis/colitis. We will consult Dr. Stacy for further evaluation and management. At this point, with the severity of his illness, I do not feel he is a good candidate for intervention. I would, however, like Dr. Stacy to be available if an emergent condition develops. 5. Central nervous system vasculitis: This diagnosis was very complex. A CT scan at [facility] suggested the possibility of vasculitis. No definitive etiology, however, has been made. The patient has been treated with prednisone followed by rituximab, and now mycophenolate. We will taper the patient's Solu-Medrol to 20 mg daily. We will continue mycophenolate for now. We will follow this. 6. Profound weakness-unfortunately, this persists. Because of his mental status changes, he has not been able to participate in physical therapy. We will initiate this once able. 7. Constipation: This patient has achieved resolution while hospitalized. 8. Diabetes: This likely is secondary to steroid use. He is being treated with sliding scale insulin. 9. Hypertension: The patient's blood pressure remains quite elevated. He has labetalol to be used as needed. We will continue this. Once he is able to swallow pills, we will resume his home medications. 10. Hyperlipidemia/hypertriglyceridemia/atrial fibrillation: We will remain aware. Nonessential medications have been held secondary to his difficulty with swallowing. 11. Anxiety: We will transition the patient to as-needed intravenous Ativan. 12. Disposition: At this point, the patient continues to require snf care in a hospital setting. We will plan discharge home once appropriate. cc: Ludwig Daley MD
[2019-07-19] MEDS: NS 1,000 ML IV ONE ×2 (02:27→02:33)
[2019-07-19 02:41] LABS: HEMATOCRIT 33.9 % (42.0-52.0); HEMOGLOBIN 10.8 g/dL (14.0-18.0)
[2019-07-19] MEDS ORDERED: NS 1,000 ML IV ONE ×3 (02:47→08:26)
[2019-07-19 03:23] LABS: HEMATOCRIT 31.9 % (42.0-52.0); HEMOGLOBIN 10.5 g/dL (14.0-18.0)
[2019-07-19] MEDS: ZOSYN 3.375 GM in NS 50 ML IV SCH ×4 (03:33→19:14)
[2019-07-19] MEDS ORDERED: SODIUM CHLORIDE 0.9% INJ SCH ×2 (04:00)
[2019-07-19] MEDS ORDERED: PROTONIX IV SCH ×2 (04:00)
[2019-07-19] MEDS: 1/2 NS 1,000 ML IV SCH ×3 (04:30→05:28)
[2019-07-19] MEDS: MORPHINE IV PRN ×12 (04:38→23:42)
--- NOTE | 2019-07-19 04:40 | GASTROENTEROLOGY CONSULTATION ---
DATE: 07/19/2019 REASON FOR CONSULTATION: Hematochezia. HISTORY OF PRESENT ILLNESS: Mr. 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 Apparently, the patient has been treated at [facility] with immunosuppressive therapy, including prednisone, rituximab, and most recently mycophenolate. He is followed by Neurology here, who notes progressive rapid neurological decline without much improvement. Today approximately around 2:30 p.m., the patient developed rectal bleeding with bright red blood as well as a couple of clots. His vital signs have remained stable with hypertension and a normal heart rate up until around 2 a.m. this morning when he became hypotensive and tachycardic with a blood pressure 60/44, and less responsive. GI was called and the patient was subsequently transferred to the ICU. Repeat blood pressure 130/62 with a heart rate of 79 after 1 L of normal saline. He was placed on a non-rebreather given increased work of breathing. A Stat H and H revealed a hemoglobin of 10.5 from 13.5 yesterday morning. Around 3:30 this a.m. the patient had a brief covered in bright red blood. No hematemesis. The patient is minimally responsive, however, he does open his eyes. He does not respond to questions or commands. REVIEW OF SYSTEMS: Unable to obtain. 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 PAST SURGICAL HISTORY: As previously mentioned above. CURRENT MEDICATIONS: Aspirin, amlodipine, digoxin, prednisone, duloxetine, mycophenolate, omeprazole, tamsulosin, Lipitor, trazodone, olanzapine. SOCIAL HISTORY: No smoking, alcohol, or drug use. 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 He previously exercised intermittently and was a golfer. FAMILY HISTORY: Father at 61 from complications of cerebral hemorrhage. Mother at 84 secondary to "old age." PHYSICAL EXAMINATION: Vital signs: Temperature of 97.9 degrees, heart rate of 76, blood pressure 130/62, respiratory rate 18, O2 saturation 100% on a non-rebreather. Generally: Patient is awake, opens his eyes spontaneously. No acute distress. HEENT: Sclerae anicteric. Moist mucous membranes. Neck: Supple. No JVD or lymphadenopathy. Cardiac: Regular rate and rhythm. No murmurs. Lungs: Increased work of breathing. Clear to auscultation bilaterally. No wheezing. Abdomen: Soft, nontender, nondistended. Normoactive bowel sounds. No rebound or guarding. Extremities: No clubbing, cyanosis, or edema. Warm and well perfused. Neuro: The patient moves his extremities spontaneously, however, does not follow any commands. LABS: Hemoglobin of 10.5 from 13.5, white count of 4.9, platelets of 177,000 with 4% bands. LFTs are within normal limits. Chemistries remarkable for BUN of 26, creatinine 0.9, glucose 198. IMAGIN. CT of the abdomen and pelvis on 07/12 shows constipation with fecal impaction. 2. Chest x-ray on 07/12 shows poor inspiration, left lower lobe atelectasis. 3. Head CT on 07/12, progressive progression of chronic ischemic changes with regard to the left basal ganglia lacuna since the previous study. 4. CT angiogram of head and neck shows arthrosclerotic calcification involving the chronic siphons bilaterally with [id number] luminal narrowing, atherosclerotic calcification of the carotid bulbs bilaterally with about 30 to 40 percent luminal narrowing somewhat limited by poor contrast bolus. ASSESSMENT AND PLAN: Mr. 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 His course has been complicated with urinary retention and gastrointestinal bleed with hematochezia and a dropping hematocrit with a hemoglobin of 10.5 from 13.5 at baseline. He is currently not on any blood thinners. He is on antibiotics for UTI as well as steroids for his underlying vasculitis. He is currently on a PPI, pantoprazole 40 mg IV once daily. We will increase that to twice a day and continue to bolus some normal saline as needed to maintain MAPs greater than 65. Trend his hemoglobin and hematocrit every 8 hours to maintain a hemoglobin greater than 7 to 8. He has been cross-matched. He does have a central line in the right femoral vein. We will need to discuss with family goals of care given his Do Not Resuscitate code status and his poor neurological status at this point. The differential for his gastrointestinal bleeding is likely diverticular. Other etiologies include arteriovenous malformations, unclear if patient had has ever had previous colonoscopy; therefore, cannot rule out malignancy. Other possibility include brisk upper gastrointestinal bleed. However, this is less likely given the character of his bleeding. # Hematochezia # Hypotension # Acute blood loss anemia # AMS # UTI Thank you for this consult. We will follow with you. Please call with any questions or concerns. cc: Ludwig Daley MD MTDD
[2019-07-19 05:40] LABS: BASO# 0.02 X1000 (0.0-0.2); BASO% 0.3 % (0.0-0.8); EOS# 0.09 X1000 (0.0-0.7); EOS% 1.3 % (0.0-10.0); HEMATOCRIT 29.7 % (42.0-52.0); HEMOGLOBIN 9.5 g/dL (14.0-18.0); IMM GRAN# 0.48 X1000 (0.0-0.04); IMM GRAN% 6.9 % (0.0-0.5); LYMPH# 0.71 X1000 (1.2-3.4); LYMPH% 10.3 % (20.5-51.1); MCH 28.8 PG (27-31); MONO# 1.13 X1000 (0.11-0.59); MONO% 16.3 % (1.7-9.3); MPV 11.4 FL (7.4-10.4); NEUT# 4.49 X1000 (1.4-6.5); NEUT% 64.9 % (42.2-75.2); PLT 219 X1000 (130-400); WBC 6.92 X1000 (4.8-10.8)
[2019-07-19 05:43] LABS: INR 1.34; PROTIME 16.8 Seconds (11.0-16.0)
[2019-07-19 05:50] LABS: AGAP 8; ALB/GLOB RATIO 1.3; ALBUMIN 2.2 g/dL (3.5-5.0); ALKALINE PHOSPHATASE 37 U/L (32-122); BUN 30 mg/dL (8-22); CALCIUM 8.5 mg/dL (8.8-10.2); CHLORIDE 105 mmol/L (98-107); COSMO 292; CREATININE 1.1 mg/dL (0.7-1.2); ESTIMATED GFR > 60; GLUCOSE 148 mg/dL (70-104); GOT 22 U/L (10-34); GPT 31 U/L (10-44); POTASSIUM 3.8 mmol/L (3.5-5.1); SODIUM 142 mmol/L (136-145); TCO2 29 mmol/L (25-35); TOTAL BILIRUBIN 0.43 mg/dL (0.20-1.00); TOTAL PROTEIN 3.9 g/dL (6.3-8.3)
[2019-07-19] MEDS: HUMULIN R SUBQ SCH ×3 (06:36→16:04)
[2019-07-19] MEDS: SOLU-MEDROL IV SCH (06:37)
[2019-07-19] MEDS ORDERED: NS 1,000 ML IV SCH (07:03)
[2019-07-19 07:21] LABS: BANDS 18 % (0-1); EOS 2 % (1-10); LYMPHS 4 % (21-51); MONO 12 % (1-9); SEGS 60 % (42-75)
[2019-07-19] MEDS: LANOXIN IV SCH (08:22)
[2019-07-19] MEDS: CELLCEPT PO SCH (08:23)
[2019-07-19] MEDS: FLOMAX PO SCH (08:23)
[2019-07-19] MEDS ORDERED: NS 1,000 ML ONE (08:26)
--- NOTE | 2019-07-19 08:53 | PROGRESS NOTE ---
DATE: 07/19/2019 SUBJECTIVE: The patient had significant bleeding per rectum yesterday, and had multiple bloody bowel movements. Ultimately, was transitioned to the ICU overnight when his hematocrit continued to downtrend from 41.4 yesterday down to 29.7 this morning. The patient had multiple bloody bowel movements per nursing, and had episode of hypotension with blood pressure in the 60s recorded. No significant tachycardia was seen. The patient continues with indwelling catheter in place draining clear yellow urine. 2.8 L was recorded yesterday. Renal function remains stable with a creatinine of 1.1. OBJECTIVE: Vital Signs: Temperature 97.7 degrees, heart rate 74, blood pressure 143/91, oxygen saturation 100% on non-rebreather. General: Minimally alert and unable to communicate, not oriented to person, place, or time. Respiratory: Good respiratory effort without audible wheezing or rales. Abdomen: Soft, nontender, and nondistended. No palpable masses or hepatosplenomegaly. : No suprapubic tenderness. No CVA tenderness. Urethral catheter in place draining clear yellow urine. LABORATORY: White blood cell count 6.9, hemoglobin 9.5, and hematocrit 29.7. Sodium 142, potassium 3.8, chloride 105, bicarb 29, BUN 30, creatinine 1.1, glucose 148, and calcium 8.5. ASSESSMENT AND PLAN: Mr. 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 The patient had indwelling catheter and kept it in for several days now. The patient had significant bleeding per rectum yesterday and overnight, and had a significant drop in his hematocrit down to 29. The patient has been transferred to the ICU for further monitoring. The patient is slightly less alert than previous. The patient is on a non- rebreather with relatively stable vital signs. Renal function appears to be normal with good urinary output yesterday. Clinically, his condition remains guarded. He seems to have a significant decline in mental status, and it is difficult to get any information from him. The patient is DNR and in talking with family they are considering next step in management for him. From a urologic standpoint, would keep indwelling catheter in at this time. It appears that his condition is still critical and requiring ICU care with significant rectal bleeding. Uncertain if any procedure will be performed by GI Medicine, unlikely as there is a do not resuscitate order in place. We will continue to monitor from a urologic standpoint. Please call with questions or concerns. cc: MD Ludwig Keller MD MTDHeidi
[2019-07-19] MEDS: ATIVAN IV PRN (13:30)
[2019-07-19] MEDS ORDERED: MORPHINE IV ONE (14:08)
[2019-07-20] MEDS: MORPHINE IV PRN ×8 (00:42→23:52)
[2019-07-20] MEDS: ZOSYN 3.375 GM in NS 50 ML IV SCH ×2 (01:45→08:45)
--- NOTE | 2019-07-20 04:30 | PROGRESS NOTE ---
DATE: 07/19/2019 SUBJECTIVE: Upon my arrival this morning, patient had been transferred to the CICU. Unfortunately, he had experienced a progressive lower GI bleed. The patient became hypotensive and was transferred. The patient had been treated with multiple normal saline boluses. Pressors have not been initiated secondary to family request. The patient is a DNR level 1. Upon my arrival this morning, patient was noted to move all extremities, but was unresponsive. A long discussion was held with family. A palliative approach was deemed most appropriate. The patient was treated with as needed IV morphine and IV Ativan throughout the day. Upon my return this afternoon and this evening, patient was comfortable. He remains unresponsive. His breathing is nonlabored. There has been no evidence of fevers, chills, nausea, or vomiting. Blood pressure remains marginal. OBJECTIVE: Vital Signs: T-max 98.8 degrees, heart rate 68-94, respirations 8- 10, blood pressure 74 to 143/50 to 84. General: Unresponsive. Cardiovascular: Regular rate and rhythm. No significant murmurs, rubs, or gallops. Pulmonary: Clear to auscultation anteriorly. Abdomen: Soft, nontender, nondistended. Positive bowel sounds. Extremities: No significant clubbing or cyanosis. There is 2+ lower extremity edema bilaterally. Dermatologic: Evaluation reveals no evidence of rash. LABORATORY DATA: White blood cell count 6.92, hemoglobin 10.5, hematocrit 31.9, platelet count 219,000. Sodium 142, potassium 3.8, chloride 105, bicarbonate 29, BUN 30, creatinine 1.1, glucose 148, calcium 8.5. Total bilirubin 0.43 total protein 3.9, albumin 2.2, alkaline phosphatase 37, AST 22 and ALT 31. ASSESSMENT AND PLAN: 1. Alteration of mental status-patient was diagnosed upon admission. The patient was found to have a urinary tract infection. Unfortunately, patient has developed a significant lower gastrointestinal bleed. Because of his progressive illness and his inability to recover, palliative measures have been pursued. The patient will be treated with as- needed morphine and Ativan. Additional oral medications have been held. 2. Urinary tract infection-culture grew enterococcus. He is currently being treated with Zosyn therapy. 3. Urinary retention-Quigley catheter remains in place. Urine output is decreasing. 4. Lower gastrointestinal bleed-this likely is diverticular in etiology. At this point, gastrointestinal intervention is not indicated. I appreciate Dr. Stacy's consultation. 5. Central nervous system vasculitis. At this point, the question is raised whether this is also playing a role. Unfortunately, patient is unable to recover from his current condition. Palliative measures will be approach. 6. Diabetes-the patient's pattern blood sugars will be suggested. 7. Hypotension- Secondary to GI bleed. A long discussion was held with the patient's entire family. At this point, family would not like to pursue pressor intervention or further IV boluses. I expect the patient's blood pressure to continue to trend downward with time. 8. Hyperlipidemia/hypertriglyceridemia/atrial fibrillation-we will remain aware. 9. Prognosis-as above, because of the patient's advanced central nervous system vasculitis in combination with urinary tract infection and lower gastrointestinal bleed, a long discussion was held with family. Palliative measures were deemed appropriate. We will proceed with this while hospitalized. 10. I anticipate the patient will likely pass within the next 24 to 48 hours. The patient's family is at bedside and aware. cc: Ludwig Daley MD MTDD
[2019-07-20] MEDS: SOLU-MEDROL IV SCH (06:46)
[2019-07-20] MEDS: LANOXIN IV SCH (10:00)
--- NOTE | 2019-07-20 19:56 | GASTROENTEROLOGY PROGRESS NOTE ---
DATE: 07/20/2019 SUBJECTIVE: Patient lying in bed. He is unresponsive. I reviewed the chart and spoke with the patient's family at bedside and also with the nursing staff. The patient is a DNR level 1, and a palliative care approach is being followed. The family decided not to proceed with any kind of aggressive intervention including colonoscopy for rectal bleeding. I have discussed the above with the patient's family at bedside and nursing staff. We will be available as needed. Please call us with any further questions. Thank you for allowing us to participate in the care of the patient. cc: MD Ludwig Ramirez MD MTDD
--- NOTE | 2019-07-21 06:15 | PROGRESS NOTE ---
DATE: 07/20/2019 SUBJECTIVE: Upon my arrival this morning, patient remained unresponsive. The family was at bedside. The patient was provided morphine therapy overnight to maintain palliation. The patient has had no p.o. intake. Urine output has decreased considerably. Throughout the day, patient has been largely stable. He is modestly hypotensive. He does, however, appear to be in no distress. This evening condition is unchanged. He has not required morphine intervention since this morning. He remains unresponsive. OBJECTIVE: T-max 99.8 degrees, heart rate 74 to 82, respirations 8 to 10, blood pressure 80 to 104/48 to 63.General: Gravely ill. Nonresponsive. Cardiovascular: Regular rate and rhythm. No significant murmurs, rubs, or gallops. Pulmonary: Distant breath sounds anteriorly. Abdomen: Soft, nontender, nondistended. Positive bowel sounds. Extremities: No significant clubbing or cyanosis. Trace lower extremity edema bilaterally. Dermatologic: Evaluation reveals no evidence of rash. LABORATORY DATA: None. ASSESSMENT AND PLAN: 1. 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 Unfortunately, patient's overall condition has progressed despite maximized medical intervention. The patient has been transitioned to a palliative approach. At present time, patient is unresponsive. He is being treated with as needed morphine and Ativan. 2. Urinary tract infection-culture grew enterococcus. He currently is not being treated secondary to the palliative nature of our current intervention. 3. Urinary retention--Quigley catheter remains in place. 4. Lower gastrointestinal bleed-this likely is diverticular versus vasculitic in etiology. Gastrointestinal intervention has been deferred by family. I agree with this with his grave condition. We will continue to follow clinically. 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 He is being treated with Solu-Medrol for palliation. 6. Diabetes-blood sugars are no longer being followed. We will remain aware. 7. Hypotension-blood pressure remains marginal. We will continue supportive care. 8. Hyperlipidemia/hypertriglyceridemia/atrial fibrillation-we will remain aware. 9. Prognosis-unfortunately, patient will likely not survive this hospitalization. We have transitioned to a palliative approach. At present time, he appears comfortable, but unresponsive. cc: Ludwig Daley MD
[2019-07-21 17:25] VITALS: BP 112/61
--- NOTE | 2019-07-21 23:32 | PROGRESS NOTE ---
DATE: 07/21/2019 SUBJECTIVE: Upon my arrival this morning, patient remained unresponsive. He did appear very comfortable. Throughout the day, patient's condition is largely unchanged. The patient did have evidence of a persistent lower GI bleed with a melenic stool. This evening upon my arrival, family is at bedside. He remains unresponsive. There has been no evidence of fevers, chills, or vomiting. OBJECTIVE: T-max 100.6 degrees, heart rate 78 to 147, respirations 11 to 20, blood pressure 90 to 112 over 57 to 65.General: No acute distress. Cardiovascular: Regular rate and rhythm. No significant murmurs, rubs, or gallops. Pulmonary: Shallow breathing. Reasonable air movement. Abdomen: Soft, nondistended. Positive bowel sounds. Extremities: No significant clubbing or cyanosis. There is 1+ lower extremity edema bilaterally, 2+ upper extremity edema bilaterally. Dermatologic: Evaluation reveals multiple ecchymoses. LABORATORY DATA: None. ASSESSMENT AND PLAN: 1. Alteration of mental status/end of life-this likely is a consequence of his central nervous system vasculitis, complicated by urinary tract infection. Despite maximized medical management, unfortunately, the patient's condition continues to progress. The patient's family is at bedside. They have chosen a palliative approach. We will continue as-needed morphine and Ativan therapy. At present time, patient appears comfortable. 2. Urinary tract infection-patient's urine grew enterococcus. Zosyn therapy was discontinued secondary to palliation. We will remain aware. 3. Lower gastrointestinal bleed-this is likely diverticular versus vasculitic in etiology. Unfortunately, he continues to have blood loss. He is not a candidate for intervention. We will continue supportive care. 4. 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 Solu-Medrol has been discontinued in favor of palliation. 5. Diabetes- With palliation, we discontinued fingersticks. 6. Hypotension-blood pressure is marginal. Will remain aware. 7. Hyperlipidemia/hypertriglyceridemia/atrial fibrillation-we will remain aware. 8. Prognosis-unfortunately, patient's condition is grim. Family is at bedside. They understand and wish to pursue palliative measures. I anticipate patient will pass within the next 24-48 hours. cc: Ludwig Daley MD [facility]
--- NOTE | 2019-07-22 18:28 | PROGRESS NOTE ---
DATE: 07/22/2019 SUBJECTIVE: Upon arrival, patient was surrounded by family. Per report, there has been no significant change from yesterday. The patient remains unresponsive. He continues to pass melenic/maroon stools. No evidence of fevers, chills, nausea, or vomiting. The patient appears very comfortable. OBJECTIVE: T-max 100.6 degrees, heart rate 78 to 83, respirations 11 to 20, blood pressure 90 to 112 over 57 to 61.General: Critically ill, unresponsive. Cardiovascular: Regular rate and rhythm. No significant murmurs, rubs, or gallops. Pulmonary: Clear to auscultation anteriorly. Shallow breathing. Abdomen: Nontender, nondistended. Positive bowel sounds. Extremities: No significant clubbing, cyanosis, or edema of the lower extremities, 1 to 2+ edema of bilateral upper extremities . Dermatologic: Evaluation reveals no evidence of rash. LABORATORY DATA: None. ASSESSMENT/PLAN: 1. Alteration of mental status/obtundation/end of life-the patient's condition is largely consequence of central nervous system vasculitis complicated urinary tract infection. In the setting of a lower gastrointestinal bleed, cannot rule out a central nervous system event. At this point, patient remains unresponsive. We will continue palliative measures. As above, patient's family is at bedside. 2. Urinary tract infection-urine culture grew enterococcus. Antibiotics have been discontinued secondary to a palliative approach to his condition. 3. Lower gastrointestinal bleed-this likely represents a diverticular or vasculitic etiology. The patient continues to have blood loss. We will continue supportive care. 4. Central nervous system vasculitis-as described on previous notes, this is quite complicated and likely playing a role in his overall condition. At present time, he is not treated. 5. Diabetes-fingerstick Accu-Cheks have been discontinued. We will continue palliation. 6. Hypotension-aware. 7. Hyperlipidemia/hypertriglyceridemia/atrial fibrillation-aware. 8. Prognosis-patient's prognosis is grim. As above, family is all in agreement with palliative approach to his condition. We will continue supportive care. cc: Ludwig Daley MD
[2019-07-22] MEDS: MORPHINE IV PRN (18:32)
--- NOTE | 2019-07-23 14:09 | PROGRESS NOTE ---
DATE: 07/23/2019 SUBJECTIVE: Upon my arrival, family is at his bedside. Over the course of the last 24 hours, patient's condition is largely unchanged. He remains unresponsive. He continues to intermittently pass melenic/maroon stools. He appears to be very peaceful without evidence of pain. He was provided 1 dose of morphine overnight secondary to clenching his teeth. There has been no evidence of fevers, chills, nausea, vomiting, or chest discomfort over the last 24 hours. OBJECTIVE: Vital Signs: Have been discontinued secondary to palliative nature of his service provided. General: Critically ill, unresponsive. Cardiovascular: Regular rate and rhythm. No significant murmurs, rubs, or gallops. Pulmonary: Clear to auscultation anteriorly. Abdomen: Nontender, nondistended. Sluggish bowel sounds. Extremities: No significant clubbing, cyanosis, 1 to 2+ edema of the lower extremities, 1 to 2+ edema of bilateral upper extremities. Dermatologic: Evaluation reveals no evidence of rash. LABORATORY DATA: None. ASSESSMENT/PLAN: 1. Alteration of mental status/obtundation/end of life-this likely is a consequence of the combination of central nervous system vasculitis complicated by urinary tract infection. I cannot rule out a central nervous system event in the setting of recent lower gastrointestinal bleed and hypotension. The patient remains unresponsive. Family is at bedside. We will continue palliative intervention. The patient does appear very comfortable at present time. 2. Urinary tract infection-urine grew enterococcus. Antibiotics have been discontinued secondary to palliation. We will remain aware. 3. Lower gastrointestinal bleed-this likely is either diverticular or vasculitic in etiology. I cannot fully rule out ischemic etiology. He continues to pass intermittent melenic/maroon stools. We will continue supportive care. 4. Central nervous system vasculitis-this likely is playing a significant role in his overall condition. He has suffered a significant decline over the course of the last 1 to 2 years. The patient is currently untreated. We will remain aware. 5. Kmrwrpqo-Crhi-Bskkb have been discontinued. We will continue palliation. 6. Hypotension, aware. 7. Hyperlipidemia/hypertriglyceridemia/atrial fibrillation-aware. 8. Prognosis-the patient's family is aware that his prognosis is poor. All have voiced good understanding and support for palliative measures. At present time, patient appears comfortable as he is resting. cc: Ludwig Daley MD
[2019-07-23] MEDS: MORPHINE IV PRN ×2 (14:23→19:31)
[2019-07-24] MEDS: MORPHINE IV PRN ×2 (13:08→14:27)
[2019-07-24] MEDS: ATIVAN IV PRN (14:27)
[2019-07-24] MEDS ORDERED: TRANSDERM-SCOP TD SCH (15:00)
--- NOTE | 2019-07-25 13:07 | DISCHARGE SUMMARY ---
ADMISSION DATE: 07/12/2019 DISCHARGE DATE: 07/24/2019 ADMISSION DIAGNOSES: 1. Profound weakness. 2. Alteration of mental status. CAUSE OF : Complications of HAT BLOCK MAKER vasculitis. CONTRIBUTING FACTORS: 1. Urinary tract infection. 2. Lower GI bleed. 3. Diabetes. 4. Hyperlipidemia. 5. Hypertriglyceridemia. 6. Atrial fibrillation. CONSULTS: 1. Dr. Rios was consulted on 07/13/2019 secondary to urinary retention. 2. Dr. Stacy with Gastroenterology was consulted on 07/19/2019 secondary to GI bleed. 3. Dr. Lee was consulted on 07/17/2019 secondary to central venous line placement. 4. Dr. Christopher with Neurology was consulted on 07/12/2019 secondary to alteration of mental status and a central nervous system vasculitis. PROCEDURES: CT scan of the abdomen and pelvis was performed on 07/12/2019 which revealed constipation with rectal fecal impaction. 1. CT scan of the head was performed on 07/12/2019 which revealed progression of chronic ischemic changes with regard to the left basal ganglia lacune since the previous study. 2. CT angiogram of the head and neck was performed on 07/12/2019 which revealed atherosclerotic calcifications involving the carotid siphons bilaterally with [id number] luminal narrowing. Atherosclerotic calcifications at the carotid bulb bilaterally with about 30 to 40 percent luminal narrowing. HISTORY AND PHYSICAL EXAMINATION: See admit note. HOSPITAL COURSE: Patient was admitted as per history and physical examination. Hospital course per condition is as follows. 1. Alteration of mental status/ End stage HAT BLOCK MAKER vasculitis-upon admission, patient was noted to have considerable alteration of mental status. Initially, it was felt this likely was secondary to a combination of HAT BLOCK MAKER vasculitis in urinary tract infection. Patient was treated accordingly. Initially, patient achieved modest improvement, although not back to baseline. During hospitalization, the patient developed a lower GI bleed resulting in significant hypotension. Thereafter, the patient's mental status continued to decline. A long discussion was held with patient's family. At that point, palliative measures were deemed most appropriate. The patient was supported throughout the remainder of hospitalization. Patient remained without evidence of pain. Ultimately, on 07/24/2019 at 15:13, he was pronounced . Family was at bedside. 2. Urinary tract infection-upon admission, patient was diagnosed with a urinary tract infection secondary to enterococcus. The patient was treated with IV Zosyn until palliative approach was deemed most warranted. At that time, antibiotics were discontinued. 3. 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 This precipitated further decline in mental status. The possibility of a hypotensive stroke was considered. As above, a long discussion was held regarding plan for treatment. Family wished for a palliative approach. Throughout the remainder of hospitalization, patient continued to have intermittent melenic stools. Etiology was likely diverticular versus vasculitic. 4. Diabetes, hyperlipidemia, hypertriglyceridemia, atrial fibrillation, hypertension-each of these were managed early in hospitalization with home medications. Once a palliative approach was felt most appropriate, medications were discontinued. Family was in agreement. cc: Ludwig Daley MD MTDD
== END 2019-07-24 15:13 | disposition expired | DRG 689 ==
LOC: SUPCPDRO → ED 23:53 → 1N 23:54 → SUATTDRO 23:54 → ICU 07-19 03:12 → 3N 07-21 00:47
PROVIDERS: ADMIT Internal Medicine; ATTEND Internal Medicine